=== PATIENT | female | born 1970 | race Caucasian/White ===

== ENCOUNTER 2017-03-25 13:15 | Inpatient (IN) | payer BC, SELFPAY ==
--- NOTE | 2017-03-25 14:38 | CT ---
CT OF THE BRAIN WITHOUT CONTRAST: COMPARISON: None. HISTORY: Altered mental status. The patient was wandering around work. High blood glucose. TECHNIQUE: Multiple contiguous axial images were obtained in a CT of the brain without contrast. FINDINGS: There are scattered hypodensities in the subcortical and periventricular white matter, likely seconda ry to small-vessel ischemic disease. No large confluent infarction is seen. There is no evidence of hydrocephalus, intracranial hemorrhage, or extraaxial fluid collection. The calvarium and overlying soft tissues are unremarkable. The visualized paranasal sinuses and mast oid air cells are well aerated. IMPRESSION: No evidence of acute intracranial abnormality. POS: [facility]
[2017-03-25 15:02] LABS: #Lymphocytes 1.2 thou/uL (1.20-3.40); #Monocytes 0.5 thou/uL (0.11-0.59); #Neutrophils 9.7 thou/uL (1.40-6.50); %Eosinophils 0.3 % (0.0-10.0); %Lymphocytes 10.2 % (21.0-51.0); %Monocytes 4.7 % (0.0-10.0); %Neutrophils 84.8 % (42.0-75.0); Hemoglobin 14.3 g/dL (12.0-16.0); Mean Corpuscular HGB CONC 32.7 g/dL (32.0-36.0); Mean Corpuscular Hemoglobin 26.4 pg (27.0-31.0); Mean Corpuscular Volume 80.8 fl (81.0-99.0); Mean Platelet Volume 8.5 fL (7.4-10.4); Platelet Count 219 thou/uL (130-400); RBC Distribution Width 12.1 % (11.5-14.5); White Blood Cell (WBC) Count 11.5 thou/uL (4.8-10.8)
--- NOTE | 2017-03-25 15:06 | RAD ---
TWO VIEWS OF THE CHEST: COMPARISON: None. HISTORY: Confusion, altered mental status, and tachycardia. FINDINGS: Two views of the chest show normal sized cardiomediastinal silhouette. There is no evidence of consol idation, mass, or pleural effusion. Mild degenerative changes are seen in the spine. IMPRESSION: No evidence of acute cardiopulmonary disease. POS: [facility]
[2017-03-25 15:22] LABS: Anion Gap 19 mmol/L (10-20); BUN (Urea Nitrogen) 15 mg/dL (7.0-18.7); Calc. Creatinine Clearance 0 mL/min (70-130); Calcium 9.9 mg/dL (7.8-10.44); Carbon Dioxide 21 mmol/L (22-29); Chloride 101 mmol/L (98-107); Estimated GFR-MDRD 51; Glucose 310 mg/dL (70-105); Potassium 3.7 mmol/L (3.5-5.1); Sodium 137 mmol/L (136-145)
[2017-03-25 15:28] LABS: CKMB 0.9 ng/mL (0-6.6); Troponin I 0.026 ng/mL (< 0.028)
[2017-03-25 16:20] LABS: Bilirubin Moderate (Negative); Blood, Urine Negative (Negative); Clarity CLOUDY (Clear); Glucose, Urine (Dipstick) >=1000 mg/dL (Negative); Leukocyte Trace (Negative); Nitrite Negative (Negative); Protein, Urine (Dipstick) 300 mg/dL (Neg-Trace); Specific Gravity, Urine 1.036 (1.002-1.036); Urobilinogen 0.2 mg/dL (0.2-1.0)
[2017-03-25 16:21] LABS: Bacteria/HPF 1+ HPF (None Seen); RBC/HPF 0-3 HPF (0-3)
[2017-03-25 16:22] LABS: Pathc Cast-AUWi Flag 3.92 (0-2.49)
[2017-03-25 16:29] LABS: Hyaline Casts/LPF 0-3 HYALINE CAST LPF (0-3 Hyaline); Manual Microscopic Reviewed? No Path Casts Seen
[2017-03-25 16:30] LABS: Amphetamine Not Detected (NotDetected); Barbiturates Screen Not Detected (NotDetected); Benzodiazepine Screen Detected (NotDetected); Cocaine Metabolite Screen Not Detected (NotDetected); Medtox Control Line Valid? VALID (VALID); Medtox Reader # READER 1; Methadone Not Detected (NotDetected); Methamphetamine Not Detected (NotDetected); Opiate Screen Not Detected (NotDetected); Oxycodone Screen Not Detected (NotDetected); Phencyclidine (PCP) Not Detected (NotDetected); THC/Cannabinoid Screen Not Detected (NotDetected); Tricyclic Screen Not Detected (NotDetected)
[2017-03-25] MEDS ORDERED: ISOVUE-370 76%-LOCM 1 ML ONE (16:52)
[2017-03-25 18:40] LABS: Troponin I 0.158 ng/mL (< 0.028)
[2017-03-25] MEDS ORDERED: Dextrose 5% in Water 1,000 ML IV PRN (21:03)
[2017-03-25] MEDS ORDERED: Dextrose 50% Abboject 50 ML SYRINGE SLOW IVP PRN (21:03)
[2017-03-25] MEDS ORDERED: hydrALAZINE 20 MG/ML VIAL SLOW IVP PRN (21:05)
[2017-03-25] MEDS ORDERED: Labetalol HCl 100 MG/20 ML VIAL SLOW IVP PRN (21:05)
[2017-03-25 21:17] LABS: Troponin I 0.432 ng/mL (< 0.028)
[2017-03-25 21:20] VITALS: BMI 30.9
[2017-03-25 21:28] LABS: Hemoglobin A1c 11.9 % (4.0-6.0)
[2017-03-25 21:31] LABS: ALT (SGPT) 15 U/L (8-55); AST (SGOT) 16 U/L (5-34); Albumin 4.1 g/dL (3.5-5.0); Alkaline Phosphatase 135 U/L (40-150); Bilirubin, Direct 0.2 mg/dL (0.1-0.3); Bilirubin, Total 0.6 mg/dL (0.2-1.2); Protein, Total 7.1 g/dL (6.0-8.3)
[2017-03-25] MEDS: Sodium Chloride 0.9% 1,000 ML IV SCH (21:44)
[2017-03-25] MEDS ORDERED: HumaLOG 300 UNITS/3 ML VIAL SC PRN (23:53)
[2017-03-25] MEDS ORDERED: Sodium Chloride 0.9% 1,000 ML IV SCH (23:59)
[2017-03-26] MEDS ORDERED: Acetaminophen 325 MG TAB PO PRN (00:04)
[2017-03-26 00:05] LABS: Troponin I 0.918 ng/mL (< 0.028)
[2017-03-26] MEDS: Enoxaparin Sodium 80 MG/0.8 ML SYRINGE SC SCH ×2 (01:22→01:24)
[2017-03-26] MEDS ORDERED: Aspirin 325 MG TAB PO SCH (04:00)
[2017-03-26] MEDS ORDERED: Heparin 25,000 units/D5W 500 ML IVPB SCH (04:00)
[2017-03-26] MEDS ORDERED: Heparin 10,000 UNITS/ 10 ML VIAL SLOW IVP SCH (04:00)
[2017-03-26 04:12] LABS: #Lymphocytes 2.1 thou/uL (1.20-3.40); #Monocytes 0.6 thou/uL (0.11-0.59); #Neutrophils 3.9 thou/uL (1.40-6.50); %Basophils 0.2 % (0.0-1.0); %Eosinophils 0.4 % (0.0-10.0); %Lymphocytes 30.9 % (21.0-51.0); %Neutrophils 59.5 % (42.0-75.0); Mean Corpuscular HGB CONC 32.3 g/dL (32.0-36.0); Mean Corpuscular Hemoglobin 26.1 pg (27.0-31.0); Mean Platelet Volume 8.1 fL (7.4-10.4); Platelet Count 196 thou/uL (130-400); RBC Distribution Width 12.3 % (11.5-14.5); Red Blood Cell (RBC) Count 4.58 mill/uL (4.20-5.40); White Blood Cell (WBC) Count 6.6 thou/uL (4.8-10.8)
--- NOTE | 2017-03-26 04:28 | HP-2 ---
DATE OF ADMISSION: 03/25/2017 CODE STATUS: FULL PRIMARY CARE PHYSICIAN: None. ATTENDING: Clint Zamora M.D. RESIDENT: Paulina Gutiérrez MD. CHIEF COMPLAINT: Confusion. HISTORY OF PRESENT ILLNESS: This is a 47-year-old female with past medical history of diabetes, hypertension, CVA in 2016, who presents to the ED via EMS due to an episode where she reports walking up and down in pack at work, where her coworkers found her, but she does not remember doing this after going to the bathroom about 30 minutes prior. She was very foggy during this time and has no recollection of what happened during that 30 minute period. She denies any weakness, but does report some tingling in her right hand. By the time she got to the ED about 45 minutes later, she felt okay with no residual symptoms. This all started around 12:30 p.m. This has never happened before. She denies any dizziness or lightheadedness or gait disturbance. Her blood sugar was high at the time. She does report that she has had a cough and has been taking DayQuil and NyQuil. PAST MEDICAL HISTORY: 1. Diabetes type 2. 2. Hypertension. 3. CVA in 2016. PAST SURGICAL HISTORY: 1. . 2. Hysterectomy. 3. Tonsillectomy. 4. Left leg and ankle repair. ALLERGIES: PENICILLIN. MEDICATIONS: 1. Lisinopril 10 mg. 2. Metformin 500 mg b.i.d. 3. Glimepiride 1 mg. 4. Hydralazine, unknown dose t.i.d. FAMILY HISTORY: Diabetes type 2. SOCIAL HISTORY: Denies tobacco or drug use. Drinks alcohol socially. REVIEW OF SYSTEMS: General: Denies fever, chills, or fatigue. Eyes: Denies vision changes or eye pain. ENT: Denies rhinorrhea or sore throat. Respiratory: Positive for cough. Negative for shortness of breath. Cardiovascular: Negative for chest pain or palpitations. GI: Negative for nausea, vomiting, abdominal pain. Genitourinary: Negative for dysuria, polyuria. Skin: Negative for rashes or lesions. Musculoskeletal: Negative for pain or tenderness. Neurologic: Negative for weakness. Positive for numbness. PHYSICAL EXAMINATION: VITAL SIGNS: Blood pressure 135/76, pulse 114, respiratory rate 16, temperature 99.1, pulse ox 98% on room air. Current weight 77 kilograms. GENERAL: Alert and oriented x3, no acute distress, obese, appropriately interactive. HEENT: PERRLA. Extraocular muscles intact. Conjunctivae within normal limits. ENT: Nasal mucosa and oropharynx within normal limits. NECK: Supple, no lymphadenopathy. CARDIAC: Regular rate and rhythm, no murmurs, 2+ radial and pedal pulses. LUNGS: Normal effort, no retractions, clear to auscultation bilaterally. SKIN: Warm, dry. No cyanosis or lesions. ABDOMEN: Soft, nontender to palpation, normoactive bowel sounds. No mass or distention. EXTREMITIES: No cyanosis or edema. MUSCULOSKELETAL: Structure and tone within normal; 5/5 muscle strength. Full range of motion. NEUROLOGICAL: No focal deficits. Sensation within normal limits. Cerebellum intact. Cranial nerves II through XII intact. GCS 15. PSYCHIATRIC: Appropriate. LABORATORY DATA: WBC 11.5, hemoglobin 14.3, hematocrit 43.7, MCV 80.8, neutrophils 84.8%, platelets 218. Sodium 137, potassium 3.7, chloride 101, CO2 21, BUN 15, creatinine 1.14, GFR 51, glucose 310, calcium 9.9, AST 16, ALT 15, alkaline phosphatase 135, total bilirubin 0.6, ammonia 15, D-dimer 0.69, CK-MB 0.9, troponin 0.02, 0.158, 0.432. Urinalysis showed 300 protein, trace leukocyte esterase, trace ketones, greater than 1000 glucose, 4-6 white blood cells, 1+ bacteria. UDS showed positive for benzodiazepines. EKG showed sinus tachycardia. Chest x-ray showed no acute process. CT brain showed no acute process. ASSESSMENT AND PLAN: This is a 47-year-old female, who presents with: 1. Encephalopathy; could be secondary to transient ischemic attack versus benzodiazepine abuse. The patient denied using benzos and was not given any in the ED. We will observe on stroke code. We will do q.4 neuro checks. Check an MRI, echo, carotid Dopplers with aspirin; check fasting lipid panel and TSH. 2. NSTEMI. The patient is having no chest pain, but has elevated troponins that are trending up. We will trend troponins. Start on therapeutic Lovenox and consult cardiology in the AM. Repeat EKG for any new chest pain. Give aspirin daily, nitro prn chest pain. O2 prn. 3. Elevated D-dimer. The patient's Wells score is 1.5, tachycardic, no lower extremity swelling or signs of deep venous thrombosis. We will get a CTA of the chest to rule out PE. 4. Sinus tachycardia; could be secondary to infection versus [id number] myocardial infarction versus pulmonary embolism versus thyroid abnormality. We will check a TSH. Rest of the workup as above. Normal saline bolus followed by NS 125 and monitor on tele. 5. Leukocytosis, mild. The patient has no signs or symptoms of infection. We will give fluids and monitor. 6. Asymptomatic bacteriuria. We will give fluids and monitor. 7. Diabetes type 2. We will restart home medication. Check A1c, Accu-Cheks on sliding scale insulin. 8. Hypertension. Continue home medications. 9. Venous thromboembolism prophylaxis. Therapeutic Lovenox. DISPOSITION: Observation on stroke. Symptomatic medications will be provided. History and physical exam as well as management discussed with Dr. Zamora. KUN
[2017-03-26 04:36] LABS: Anion Gap 12 mmol/L (10-20); BUN (Urea Nitrogen) 15 mg/dL (7.0-18.7); Calc. Creatinine Clearance 80 mL/min (70-130); Calcium 8.8 mg/dL (7.8-10.44); Carbon Dioxide 24 mmol/L (22-29); Cardiac Risk 6.3 (Less than 4.5); Chloride 104 mmol/L (98-107); Cholesterol 226 mg/dl (< 200 Desired); Estimated GFR-MDRD 61; Glucose 273 mg/dL (70-105); HDL Cholesterol 36 mg/dL (>60 Neg Risk); LDL Cholesterol, Calculated 167 mg/dL; Sodium 137 mmol/L (136-145); Triglycerides 114 mg/dL (Less than 150)
[2017-03-26 04:38] LABS: Potassium 2.8 mmol/L (3.5-5.1)
[2017-03-26 04:41] LABS: CKMB 4.2 ng/mL (0-6.6)
--- NOTE | 2017-03-26 04:56 | PDOC.EVN ---
Event Note - Event Note Event Note: Was called by nurse that patient refused lovenox treatment. Went to speak with patient and she stated that she would "rather " than get the lovenox shots. Explained the importance of the therapy, but the patient still adamantly refused treatment. Switched the therapy to heparin, which the patient agreed to.
[2017-03-26] MEDS ORDERED: Potassium Chloride 40 MEQ in Sodium Chloride 0.9% 500 ML IVPB SCH (05:15)
--- NOTE | 2017-03-26 05:33 | PDOC.FM ---
- Subjective Subjective: Troponin uptrended overnight. Patient refused therapeutic lovenox. Started on heparin drip. Denies chest pain, shortness of breath or chest pain. Patient states she is doing well this AM. Patient refusing MRI. States she had one done recently and does not want to get another one done. - Objective Vital Signs & Weight: Vital Signs (12 hours) Temp Pulse Resp BP Pulse Ox 03/26/17 03:34 98.6 F 102 H 16 128/60 96 03/25/17 23:34 100.1 F H 110 H 16 125/60 92 L 03/25/17 20:00 98.5 F 121 H 16 98 03/25/17 19:37 98.5 F 121 H 16 157/71 H 94 L Weight Weight 71.894 kg Result Diagrams: 03/26/17 04:06 03/26/17 04:06 Phys Exam - Physical Examination Constitutional: NAD HEENT: moist MMs Neck: supple Respiratory: no wheezing, no rales, no rhonchi, clear to auscultation bilateral Cardiovascular: RRR Gastrointestinal: soft, positive bowel sounds Musculoskeletal: pulses present Neurological: non-focal, moves all 4 limbs Psychiatric: normal affect, A&O x 3 Skin: cap refill <2 seconds Dx/Plan (1) Encephalopathy acute Code(s): G93.40 - ENCEPHALOPATHY, UNSPECIFIED Status: Acute (2) NSTEMI (non-ST elevated myocardial infarction) Code(s): I21.4 - NON-ST ELEVATION (NSTEMI) MYOCARDIAL INFARCTION Status: Acute (3) Sinus tachycardia Code(s): R00.0 - TACHYCARDIA, UNSPECIFIED Status: Acute (4) Elevated d-dimer Code(s): R79.89 - OTHER SPECIFIED ABNORMAL FINDINGS OF BLOOD CHEMISTRY Status : Acute (5) Leukocytosis Code(s): D72.829 - ELEVATED WHITE BLOOD CELL COUNT, UNSPECIFIED Status: Resolved (6) Asymptomatic bacteriuria Code(s): R82.71 - BACTERIURIA Status: Acute - Plan Plan: 1. Encephalopathy - Presented with AMS which has since resolved - Concern for TIA vs. CVA - Risk factors include uncontrolled DM, HTN, and hx of CVA in 2016 - CT Brain negative - Carotid dopplers pending - MRI brain pending; patient refusing imaging - ECHO pending - Q4H neuro checks - Uncertain whether encephalopathy 2/2 benzo use; patient denies, however positive UDS 2. NSTEMI - Troponin initially negative, but has since uptrended to 1.470 - Patient asymptomatic - EKG showed some t wave inversions in inferior leads - Patient refused lovenox, started on heparin drip - Consult cardiology today 3. Sinus Tachycardia - Unexplained - CTA chest pending 4. Elevated D-dimer - In presence of tachycardia; CTA chest pending - Patient on heparin drip due to NSTEMI 5. Leukocytosis - Resolved - Likely stress reaction 6. Asymptomatic bacteruria - No treatment at this time 7. DM2 - Uncontrolled - HgA1c 11.9 - On metformin and another oral agent - Started on insulin; titrate regimen - ASA, GERA-I, Lipid lowering agent 8. HTN - Continue home medications 9. History of CVA in 2016 - No residual effects from CVA in 2016 10. Hypokalemia - Replace electrolytes - Mg level pending
--- NOTE | 2017-03-26 08:41 | ULT ---
CAROTID ULTRASOUND: COMPARISON: None. HISTORY: TIA. TECHNIQUE: Multiplanar, cotto scale, and color Doppler images were obtained in a carotid ultrasound. Spectral an alysis of the Doppler waveforms were performed. FINDINGS: There is no significant plaque in either internal or common carotid artery. The Doppler waveforms ar e normal bilaterally. Peak systolic velocity in the right ICA is 52 cm/s The peak systolic velocity in the right CCA is 11 3 cm/s. The right ICA/CC ratio is 0.5. Peak systolic velocity in the left ICA is 52 cm/s. Peak systolic velocity in the left CCA is 96 cm/s . The left ICA/CCA ratio is 0.5. Both vertebral arteries demonstrate antegrade flow without focal stenosis. IMPRESSION: No evidence of hemodynamically significant stenosis. POS: [facility]
--- NOTE | 2017-03-26 08:49 | CT ---
PRELIMINARY REPORT/[facility]/EMERGENCY AFTER HOURS PROCEDURE: EXAM: CT Angiography Chest With Intravenous Contrast CLINICAL HISTORY: 47 years old, female; Pain; Chest pain; Type not specified; Patient HX: R/O pe TECHNIQUE: Axial computed tomographic angiography images of the chest with intravenous contrast using pulmonary embolism protocol. CONTRAST: 70 mL of ISOVUE administered intravenously. COMPARISON: No relevant prior studies available. FINDINGS: Pulmonary arteries: No acute findings. No pulmonary embolism. Aorta: No acute findings. No thoracic aortic aneurysm. Lungs: No acute findings. No mass. No consolidation. Pleural space: No acute findings. No significant effusion. No pneumothorax. Heart: No acute findings. No cardiomegaly. No significant pericardial effusion. No evidence of RV dys function. Bones/joints: Chronic degenerative spinal changes without acute fracture or dislocation. Soft tissues: No acute findings. Lymph nodes: No acute findings. No enlarged lymph nodes. Upper abdomen: Gallbladder distended with either extensive sludge vs vicariously excreted contrast. IMPRESSION: No pulmonary embolism. No pneumonia, lung mass, or edema. Gallbladder distended with either extensive sludge vs vicariously excreted contrast. Thank you for allowing us to participate in the care of your patient. Dictated and Authenticated by: Zain Jain MD 03/26/2017 1:13 AM Central Time ([place] & [place]) FINAL REPORT EMERGENT AFTER HOURS CTA OF THE CHEST WITH CONTRAST: TECHNIQUE: Multiple contiguous axial images were obtained in a CTA of the chest with contrast per pulmonary embo lism protocol. Three-D oblique MIP reformats and direct coronal reformats were performed. FINDINGS/IMPRESSION: I agree with the findings and impression given in the preliminary report per [facility] physician. 1. No evidence of pulmonary thromboembolism. 2. Distended gallbladder with sludge and stones. POS: [facility]
[2017-03-26] MEDS ORDERED: Enoxaparin Sodium 80 MG/0.8 ML SYRINGE SC SCH (09:00)
[2017-03-26] MEDS ORDERED: Potassium Chloride 20 MEQ TAB PO SCH (09:00)
[2017-03-26] MEDS ORDERED: Aspirin 81 mg Enteric Coated Tablet PO SCH (09:00)
[2017-03-26] MEDS: hydrALAZINE 25 MG TAB PO SCH ×3 (09:11→20:49)
[2017-03-26 10:11] LABS: Critical Call Chem Troponin I RESULT DECREASING; Troponin I 1.391 ng/mL (< 0.028)
[2017-03-26] MEDS: Sodium Chloride 0.9% 1,000 ML IV SCH ×2 (15:18→20:55)
[2017-03-26 16:42] LABS: Potassium 3.9 mmol/L (3.5-5.1)
[2017-03-26 16:48] LABS: Anion Gap 14 mmol/L (10-20); BUN (Urea Nitrogen) 14 mg/dL (7.0-18.7); Calc. Creatinine Clearance 91 mL/min (70-130); Calcium 9.4 mg/dL (7.8-10.44); Carbon Dioxide 23 mmol/L (22-29); Chloride 105 mmol/L (98-107); Estimated GFR-MDRD 70; Glucose 232 mg/dL (70-105); Potassium 3.9 mmol/L (3.5-5.1); Sodium 138 mmol/L (136-145)
--- NOTE | 2017-03-26 19:53 | HP ---
ADDENDUM Please see the history and physical from Dr. Gutiérrez for which I concur. I also agree with progress no te today from Dr. Goodman. This patient was seen, evaluated, examined, discussed with the resident by bedside. HISTORY OF PRESENT ILLNESS: This is a 47-year-old female who presented with altered mental status in the middle of the day at work of undetermined etiology as she related not much other symptoms before or afterwards and had history of stroke a couple of years ago, diabetes, hypertension, no reason to think that is hypoglycemia as her sugars are actually been high ever since. Did have urine drug scre en that was positive for benzodiazepines which the patient denies since it is unclear what the etiolo gy or importance of that is. But she comes in basically being worked up for the possibility of a str radha and her troponins trended upward to the point of non-ST PR range although EKG has looked normal. She describes no chest pain, no shortness of breath, no palpitations, etc. Refuses Lovenox because she did not want the shots and I ended up putting her on IV heparin. PAST MEDICAL HISTORY: All per the resident history and physical for which I concur. PAST SURGICAL HISTORY: All per the resident history and physical for which I concur. ALLERGIES: All per the resident history and physical for which I concur. MEDICATIONS: All per the resident history and physical for which I concur. FAMILY HISTORY: All per the resident history and physical for which I concur. SOCIAL HISTORY: All per the resident history and physical for which I concur. REVIEW OF SYSTEMS: All per the resident history and physical for which I concur. PHYSICAL EXAMINATION: VITAL SIGNS: Afebrile, vital signs are stable. Pulse rate is 97 little bit fast between 100 and 110 in the room, but no apparent distress. Pleasant affect. HEENT: Normal. NECK: No bruits, JVD. CHEST: Clear. CARDIOVASCULAR: Regular rate and rhythm without any ectopy. ABDOMEN: Benign. NEUROLOGIC: Completely normal. LABORATORY FINDINGS: Blood workup is significant for hypokalemia and also the elevated troponins jer nding upward. IMAGING: CTA of the chest that was normal. Drug screen was positive for benzos. ASSESSMENT AND PLAN: 1. Altered mental status, acute and resolved, makes me wonder if she maybe had some kind of arrhythm ia from the cardiac issue. They caused hypotension, hypoperfusion of the brain and some altered ment al status. Hypoglycemia that was just undiagnosed and uncaught is a possibility as well. 2. Non-ST myocardial infarction based on troponin. We will get Cardiology involved. 3. Diabetes. We will continue home medicines. 4. The patient refuses MRI of the brain, but at this point in time, I do not think it is going to be adding much to it anyway.
[2017-03-26] MEDS ORDERED: Atorvastatin Calcium 40 MG TAB PO SCH (21:00)
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
[2017-03-27] MEDS ORDERED: Levothyroxine Sodium 100 MCG TAB PO SCH (06:00)
[2017-03-27] MEDS ORDERED: Magnesium Oxide 400 MG TAB PO SCH (06:27)
--- NOTE | 2017-03-27 06:31 | PDOC.FM ---
- Objective Vital Signs & Weight: Vital Signs (12 hours) Temp Pulse Resp BP BP Pulse Ox 03/27/17 04:52 98.2 F 86 16 194/96 H 98 03/27/17 04:45 84 194/93 H 03/26/17 23:39 98.0 F 76 18 201/93 H 95 03/26/17 20:49 82 192/91 H 03/26/17 20:45 98.0 F 76 18 98 03/26/17 20:43 98.4 F 82 16 192/91 H 98 Weight Weight 71.894 kg I&O: 03/25/17 03/26/17 03/27/17 06:59 06:59 06:59 Intake Total 2160 1440 Balance 2160 1440 Result Diagrams: 03/26/17 04:06 03/26/17 16:17 Dx/Plan (1) Encephalopathy acute Code(s): G93.40 - ENCEPHALOPATHY, UNSPECIFIED Status: Acute (2) NSTEMI (non-ST elevated myocardial infarction) Code(s): I21.4 - NON-ST ELEVATION (NSTEMI) MYOCARDIAL INFARCTION Status: Acute (3) Sinus tachycardia Code(s): R00.0 - TACHYCARDIA, UNSPECIFIED Status: Acute (4) Elevated d-dimer Code(s): R79.89 - OTHER SPECIFIED ABNORMAL FINDINGS OF BLOOD CHEMISTRY Status : Acute (5) Leukocytosis Code(s): D72.829 - ELEVATED WHITE BLOOD CELL COUNT, UNSPECIFIED Status: Resolved (6) Asymptomatic bacteriuria Code(s): R82.71 - BACTERIURIA Status: Acute - Plan Plan: 1. Encephalopathy - Presented with AMS which has since resolved - Concern for TIA vs. CVA - Risk factors include uncontrolled DM, HTN, and hx of CVA in 2016 - CT Brain negative - Carotid dopplers negative - Patient refused MRI of brain - ECHO showed EF 65-70% with grade 1/3 diastolic dysfunction - Q4H neuro checks - Uncertain whether encephalopathy 2/2 benzo use; patient denies, however positive UDS 2. NSTEMI - Troponin initially negative, but uptrended to 1.470 - Patient asymptomatic - EKG showed some t wave inversions in inferior leads - Patient refused lovenox, started on heparin drip - Appreciate cards recs; considering link recorder vs. cath - possibility of arrhythmia causing episodes - Recommend neurology consult for possible seizures 3. Sinus Tachycardia - Unexplained - CTA chest negative 4. Elevated D-dimer - In presence of tachycardia; CTA chest negative - Patient on heparin drip due to elevated troponins 5. Leukocytosis - Resolved - Likely stress reaction 6. Asymptomatic bacteruria - No treatment at this time 7. DM2 - Uncontrolled - HgA1c 11.9 - On metformin and another oral agent - Started on insulin; titrate regimen - ASA, GERA-I, Lipid lowering agent 8. HTN - Continue home medications 9. History of CVA in 2016 - No residual effects from CVA in 2016 10. Hypokalemia, resolved - Replace electrolytes - Mg level low; replaced Mg
[2017-03-27] MEDS ORDERED: glipiZIDE 10 MG TAB PO SCH (07:30)
[2017-03-27] MEDS ORDERED: Aspirin 325 MG TAB PO SCH (08:00)
[2017-03-27] MEDS: hydrALAZINE 25 MG TAB PO SCH (08:55)
[2017-03-27] MEDS: Sodium Chloride 0.9% 1,000 ML IV SCH (08:56)
[2017-03-27 12:02] VITALS: TEMP 98.7
[2017-03-27 12:15] VITALS: BP 193/82
--- NOTE | 2017-03-27 16:09 | ADD-PRG ---
ADDENDUM: 03/27/2017 Please see the note from Dr. Marie Goodman for which I concur. The patient was seen and evaluate d, examined and discussed with the residents by bedside. The patient has been stable and has had no other neurologic events or any kind altered mental status that she has been in the hospital, but is b eing worked up by Cardiology and at this point in time, it really showed up on her thorough stroke an d cardiac evaluation has been the troponin. Still waiting to see cardiology's final decision as far as to proceed with outpatient rhythm monitoring or possibly even do a stress test or heart catheteriz ation or something like that on her. There is some question of maybe she has had a few of these spel ls at other times and may need considering outpatient Neurology evaluation to make sure she is not po tentially having some type of seizure or partial seizures as well, otherwise exam is completely megan l today. Patient keeps threatening to leave against medical advice, but understands the reason why s he is still here and will stay, waiting for Cardiology evaluation.
[2017-03-27] MEDS ORDERED: Lisinopril 10 MG TAB PO SCH (21:00)
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
--- NOTE | 2017-03-28 20:20 | EKG ---
Test Reason : Blood Pressure : / mmHG Vent. Rate : 108 BPM Atrial Rate : 108 BPM P-R Int : 174 ms QRS Dur : 078 ms QT Int : 346 ms P-R-T Axes : 046 030 140 degrees QTc Int : 463 ms Sinus tachycardia Anteroseptal infarct , age undetermined T wave abnormality, consider inferior ischemia Abnormal ECG Confirmed by NICK BARBOSA, DR. Hong ([id number]) on 03/28/2017 8:20:06 PM Referred By: Confirmed By:DR. Hal ROMERO MD
--- NOTE | 2017-03-31 10:27 | PQF ---
EMMETT BARRETT RUSSEL B MD [id number] [address] [place] [address] [id number] CLINICAL DOCUMENTATION CLARIFICATION FORM: POST DISCHARGE Addendum to original discharge summary date: ____ Late entry note date: __ DATE: 03/31/2017 ATTN: DR. MARROQUIN Please exercise your independent, professional judgment in responding to the clarification form. Clinical indicators are provided on the bottom of this form for your review Please check appropriate box(s): [ ] Encephalopathy: Type: [ ] Acute [ ] Subacute [ ] Chronic Etiology: [ ] Hypertensive [ ] Metabolic [ ] Toxic [ ] Hepatic with Coma [ ] Hepatic w/o Coma [ ] Hypoxic [ ] Septic [ ] Drug induced: [ ] Unspecified [ ] in the setting of underlying dementia [ ] Other (please specify) [ ] Transient Alteration of Awareness [ ] Other diagnosis [ ] Unable to determine In addition, please specify: Present on Admission (POA): [ ] Yes [ ] No [ ] Unable to determine For continuity of documentation, please document condition throughout progress notes and discharge summary. Thank You. CLINICAL INDICATORS - SIGNS / SYMPTOMS / LABS: UDS - POSITIVE BENZO H&P: Altered mental status / confusion ENCEPHALOPATHY - "COULD BE SECONDARY TO TIA VERSUS BENZODIAZEPINE ABUSE " 03/26 CARDIO CONSULT - ALTERED MENTATION 03/25 PN - ENCEPHALOPATHY - LIKELY TOXIC VS 2/2 NEUROLOGICAL EVENT VS SYNCOPE - UDS POSITIVE FOR BENZO 03/26 PN - ENCEPHALOPATHY - UNCERTAIN WHETHER ENCEPHALOPATHY 2/2 BENZO USE - POSITIVE UDS RISK FACTORS: DM - UNCONTROLLED HYPOTENSION AMS HTN HX - CVA TREATMENTS: Cause is corrected encephalopathy resolves CARDIO CONSULT MRI BRAIN NEURO CHECKS (This form is maintained as a part of the permanent medical record) 2014 [employer]. All Rights Reserved Iveth Guajardo, CCS, CERTIFIED NURSES' AIDE-H [email or web address] [phone] KUN
== END 2017-03-27 12:16 | disposition left against medical advice (07) | DRG 947 ==
LOC: ERS 13:15 → 2SE 17:16
PROVIDERS: ADMIT Internal Medicine Infectious Disease; ATTEND Internal Medicine Infectious Disease
DX: R41.82 Altered mental status, unspecified (principal); G93.40 Encephalopathy, unspecified; E11.65 Type 2 diabetes mellitus with hyperglycemia; I10 Essential (primary) hypertension; Z86.73 Personal history of transient ischemic attack (TIA), and cerebral infarction without residual deficits; Z79.84 Long term (current) use of oral hypoglycemic drugs; R82.71 Bacteriuria; Z87.820 Personal history of traumatic brain injury; R00.0 Tachycardia, unspecified; E87.6 Hypokalemia; R79.89 Other specified abnormal findings of blood chemistry; D72.829 Elevated white blood cell count, unspecified
CPT/HCPCS: 36415; 36416; 70450; 71046; 71275; 80048; 80061; 80076; 80306; 81003; 81015; 82140; 82553; 83036; 83735; 84443; 84484; 85025; 85379; 85730; 93005; 93010; 93306; 93880; J0360; J1644; J1650; J3480; J7050

== ENCOUNTER 2020-02-17 18:03 | Inpatient (IN) | payer BC, SELFPAY ==
[2020-02-17 18:36] LABS: #Basophils 0.1 thou/uL (0.0-0.2); #Lymphocytes 2.2 thou/uL (1.20-3.40); #Monocytes 0.7 thou/uL (0.11-0.59); %Basophils 0.5 % (0.0-1.0); %Eosinophils 0.1 % (0.0-10.0); %Monocytes 5.2 % (0.0-10.0); %Neutrophils 77.2 % (42.0-75.0); Hemoglobin 15.3 g/dL (12.0-16.0); Mean Corpuscular HGB CONC 34.2 g/dL (32.0-36.0); Mean Corpuscular Hemoglobin 27.2 pg (27.0-31.0); Mean Corpuscular Volume 79.5 fL (78.0-98.0); Mean Platelet Volume 9.2 fL (7.4-10.4); Platelet Count 276 thou/uL (130-400); RBC Distribution Width 12.5 % (11.5-14.5); Red Blood Cell (RBC) Count 5.63 mill/uL (4.20-5.40)
--- NOTE | 2020-02-17 18:43 | CT ---
CT head noncontrast HISTORY: Altered mental status. FINDINGS: There is no evidence of acute intracranial hemorrhage or infarct. Ventricles appear normal in size, shape and position. Old areas of encephalomalacia from prior ischemic insult involve each basal ganglia, the right fronta l lobe, in the left cerebellar hemisphere. There is no mass effect or shift of midline structures. Visualized paranasal sinuses remain well aerated. IMPRESSION : Chronic-type findings are stable. No acute intracranial abnormalities are demonstrated. Findings were called to [facility] in the emergency department at 1837 hours. Code CR.
--- NOTE | 2020-02-17 19:02 | RAD ---
Chest one view HISTORY: Altered mental status. COMPARISON: 03/25/2017. FINDINGS: Cardiac silhouette is magnified by projection. Pulmonary vasculature are unremarkable. Mediastinum is midline with aortic calcification. No lobar consolidation or evidence of pneumothorax. Osseous deformities of the anterior aspect of the right first/second ribs and the superior margin of the left scapula are unchanged and may be related to prior trauma or a congenital anomaly. IMPRESSION : Chronic-type findings are stable. No acute abnormalities are demonstrated.
[2020-02-17] MEDS ORDERED: Ondansetron PF 4 MG/2 ML Vial ONE (19:19)
[2020-02-17] MEDS ORDERED: Cefepime 2 GM VIAL ONE (19:19)
[2020-02-17] MEDS ORDERED: Vancomycin 1 GM/200 ML BAG ONE (19:19)
[2020-02-17 19:21] LABS: CKMB 0.8 ng/mL (0-6.6)
[2020-02-17 19:34] LABS: Prothrombin Time 13.5 sec (12.0-14.7)
[2020-02-17 19:48] LABS: PTT 24.7 sec (22.9-36.1)
[2020-02-17 19:54] LABS: ALT (SGPT) 22 U/L (8-55); AST (SGOT) 24 U/L (5-34); Albumin 4.2 g/dL (3.5-5.0); Alkaline Phosphatase 133 U/L (40-110); Anion Gap 26 mmol/L (10-20); BUN (Urea Nitrogen) 26 mg/dL (7.0-18.7); Bilirubin, Total 0.5 mg/dL (0.2-1.2); CK (CPK) 128 U/L (29-168); Calc. Creatinine Clearance 0 mL/min (70-130); Calcium 9.8 mg/dL (7.8-10.44); Carbon Dioxide 22 mmol/L (22-29); Chloride 101 mmol/L (98-107); Globulin 3.9 g/dL (2.4-3.5); Glucose 338 mg/dL (70-105); Lipase 46 U/L (8-78); Potassium 3.2 mmol/L (3.5-5.1); Protein, Total 8.1 g/dL (6.0-8.3); Sodium 146 mmol/L (136-145)
[2020-02-17 20:31] LABS: Bilirubin 1+ (Negative); Blood, Urine 2+ (Negative); Clarity Turbid (Clear); Glucose, Urine (Dipstick) Greater than 1000 mg/dL (Negative); Ketone, Urine 80 mg/dL (Negative); Leukocyte Negative Leu/uL (Negative); Nitrite Negative (Negative); Protein, Urine (Dipstick) 300 mg/dL (Neg-Trace); RBC/HPF 0-3 HPF (0-3); Specific Gravity, Urine 1.034 (1.002-1.036); Squamous Epithelial None Seen HPF (0-3); Urobilinogen Normal mg/dL (Less than 2); pH, Urine 5.5 (5.0-9.0)
[2020-02-17 20:32] LABS: Base Excess-Venous 1.7 mmol/L (-2.0 to 3.0); CO2 Tension (PvCO2) 34.7 mmHg (40.0-50.0); Calcium, Ionized 1.04 mmol/L (1.15-1.33); Chloride 106 mmol/L (98-107); Hemoglobin - Calc 16.4 g/dL (12.0-16.0); Potassium 3.4 mmol/L (3.5-5.1); Sodium 145 mmol/L (138-145); T. Carbon Dioxide 26.1 mmol/L (22.0-28.0); vO2 Saturation-calc 99.6 % (60.0-85.0)
[2020-02-17 20:44] LABS: Bacteria/HPF Rare-Few HPF (None Seen)
[2020-02-17] MEDS ORDERED: hydrALAZINE 20 MG/ML VIAL ONE (20:54)
[2020-02-17] MEDS ORDERED: Acetaminophen 325 MG/10.15 ML UDCUP ONE ×2 (21:57→22:01)
[2020-02-17 22:18] LABS: Lactic Acid 2.9 mmol/L (0.5-2.2)
[2020-02-17] MEDS ORDERED: Communication Order-Pharmacy FS PRN (22:29)
[2020-02-17] MEDS ORDERED: Dextrose 50% Abboject 50 ML SYRINGE SLOW IVP PRN (22:33)
[2020-02-17] MEDS ORDERED: Dextrose 5% in Water 1,000 ML IV PRN (22:33)
[2020-02-18] MEDS ORDERED: Aspirin Chewable 81 MG TAB ONE (00:07)
[2020-02-18] MEDS: Sodium Chloride 0.9% 1,000 ML IV SCH ×3 (00:29→18:29)
--- NOTE | 2020-02-18 01:04 | PDOC.BPN ---
- Brief Progress Note [id number] HP dictated
--- NOTE | 2020-02-18 01:58 | HP ---
CHIEF COMPLAINT: Altered mental status. HISTORY OF PRESENT ILLNESS: Ms. Vizcaino is a 49-year-old female with past medical history of diabetes mellitus type 2, hypertension, CVA, noncompliance, was brought to the emergency room with altered mental status. As per records, the patient had slurred speech, confusion, hyperglycemia that began around 3 p.m. per mother. The patient's mother reports that she has not been feeling well over the last week. However, the slurring of speech started around 3 p.m. She is not taking her insulin and she is diabetic. The patient has been having nausea, vomiting, generalized weakness, and fatigue. No chest pain. No shortness of breath or other symptoms reported. Workup in the emergency room including CT of the brain, no acute findings. Chest x-ray, no acute finding. EKG shows sinus tachycardia with T-wave inversion in V5 and V6. The patient also was found to be febrile with a temperature of 100.2. Lab work, the patient had elevated glucose with a blood glucose of 338. Her anion gap was 26, but the patient also was found to be in acute renal failure with a creatinine of 1.63. Venous blood gas showed a pH of 7.46. In the emergency room, the patient was hydrated with IV fluids. Her blood sugar went down to the 200s. The patient became more alert, awake, able to answer questions. Septic workup done in the ED. Started on IV antibiotics. Her initial troponin was 3.8, repeat is 2.9. The patient is being admitted to hospital for further management. PAST MEDICAL HISTORY: As mentioned above in the history of present illness. PAST SURGICAL HISTORY: 1. . 2. Hysterectomy. 3. Tonsillectomy. 4. Leg and ankle repair. SOCIAL HISTORY: The patient drinks socially. Denies drug use. No smoking history. FAMILY HISTORY: Reviewed and noncontributory. ALLERGIES: PENICILLINS. HOME MEDICATIONS: See home medication reconciliation form for updated medications. REVIEW OF SYSTEMS: The patient is a very poor historian, but review of 14 systems is negative except what is mentioned in history of present illness. PHYSICAL EXAMINATION: GENERAL: The patient is awake, alert, does not appear to be in acute distress. VITAL SIGNS: Blood pressure is 128/94, heart rate is 110, respiratory rate is 20, and temperature 100.2 and now it is 99.5. HEAD AND NECK: Normocephalic. Neck is supple. Mucous membranes dry. HEART: S1, S2. Regular, tachycardic. ABDOMEN: Soft, nontender. Bowel sounds present. NEUROLOGIC: Awake, alert, moving extremities. PSYCH: Unable to assess. EXTREMITIES: No clubbing. No cyanosis. GENITOURINARY: No suprapubic tenderness. No flank tenderness. LABORATORY DATA: As mentioned above in history of present illness. IMAGING STUDIES: As mentioned above in history of present illness. ASSESSMENT: 1. Acute encephalopathy, metabolic. 2. Diabetes mellitus with hyperglycemia. 3. Acute kidney injury/acute renal failure. 4. Noncompliance. 5. History of cerebrovascular accident. 6. Suspected sepsis?? PLAN: 1. Admit. 2. Septic workup done in the ED. 3. IV antibiotics. 4. Continue with IV fluids. 5. Monitor and control blood glucose, place the patient on sliding scale with insulin coverage. 6. Reconcile home medications. 7. DVT prophylaxis as appropriate. 8. The patient to be reassessed in a.m. after IV fluid hydration. If the patient is still having altered mental status or worsening, may need further neurological workup. 9. Expected length of stay, 2 midnights or more. Job ID: [id number]
[2020-02-18 04:35] VITALS: BMI 29.7
[2020-02-18 05:21] LABS: Cardiac Risk 5.9 (Less than 4.5)
--- NOTE | 2020-02-18 07:41 | RAD ---
XR Chest 1 View History: Code Comparison: Radiograph prior day Findings: Left lower lobe atelectasis. No pneumothorax. Heart size is normal. No acute osseous abnorm ality. Osseous fusion right anterior first and second ribs. Impression: Left basilar atelectasis otherwise no significant change.
[2020-02-18] MEDS ORDERED: Cefepime 2 GM in Sodium Chloride 0.9% 100 ML IVPB SCH (08:00)
[2020-02-18 08:06] LABS: #Lymphocytes 1.2 thou/uL (1.20-3.40); #Monocytes 0.2 thou/uL (0.11-0.59); #Neutrophils 2.7 thou/uL (1.40-6.50); %Basophils 0.6 % (0.0-1.0); %Lymphocytes 28.5 % (21.0-51.0); %Monocytes 5.4 % (0.0-10.0); %Neutrophils 65.5 % (42.0-75.0); Hemoglobin 14.5 g/dL (12.0-16.0); Mean Corpuscular HGB CONC 33.2 g/dL (32.0-36.0); Mean Corpuscular Hemoglobin 26.8 pg (27.0-31.0); Mean Corpuscular Volume 80.7 fL (78.0-98.0); Mean Platelet Volume 8.7 fL (7.4-10.4); Platelet Count 212 thou/uL (130-400); RBC Distribution Width 12.4 % (11.5-14.5); White Blood Cell (WBC) Count 4.2 thou/uL (4.8-10.8)
[2020-02-18] MEDS: Enoxaparin Sodium 40 MG/0.4 ML SYRINGE SC SCH (08:09)
[2020-02-18 08:23] LABS: Lactic Acid 2.2 mmol/L (0.5-2.2)
[2020-02-18 08:29] LABS: Acetaminophen Less than 6.0 mcg/mL (10.0-30.0); Alcohol Less than 10 mg/dL (Less than 10); Salicylate Less than 8.0 mg/dL (15.0-30.0)
[2020-02-18 08:30] LABS: ALT (SGPT) 18 U/L (8-55); AST (SGOT) 30 U/L (5-34); Albumin 3.4 g/dL (3.5-5.0); Alkaline Phosphatase 105 U/L (40-110); Anion Gap 19 mmol/L (10-20); BUN (Urea Nitrogen) 26 mg/dL (7.0-18.7); Bilirubin, Total 0.7 mg/dL (0.2-1.2); Calc. Creatinine Clearance 62 mL/min (70-130); Calcium 8.4 mg/dL (7.8-10.44); Carbon Dioxide 19 mmol/L (22-29); Chloride 106 mmol/L (98-107); Globulin 3.5 g/dL (2.4-3.5); Glucose 223 mg/dL (70-105); Protein, Total 6.9 g/dL (6.0-8.3); Sodium 141 mmol/L (136-145)
[2020-02-18 08:43] LABS: Amphetamine Not Detected (NotDetected); Barbiturates Screen Not Detected (NotDetected); Benzodiazepine Screen Not Detected (NotDetected); Cocaine Metabolite Screen Not Detected (NotDetected); Medtox Reader # READER 1; Methadone Not Detected (NotDetected); Methamphetamine Not Detected (NotDetected); Opiate Screen Not Detected (NotDetected); Oxycodone Screen Not Detected (NotDetected); Phencyclidine (PCP) Not Detected (NotDetected); THC/Cannabinoid Screen Not Detected (NotDetected); Tricyclic Screen Not Detected (NotDetected)
[2020-02-18 08:44] LABS: Medtox Control Line Valid? VALID (VALID)
[2020-02-18 08:44] LABS: Potassium 2.7 mmol/L (3.5-5.1)
[2020-02-18] MEDS ORDERED: Vancomycin HCl 1 GM in Sodium Chloride 0.9% 250 ML 300 ML IVPB SCH (09:00)
[2020-02-18 09:24] LABS: SARS-CoV-2 MS2 Positive; SARS-CoV-2 N Gene Negative; SARS-CoV-2 S Gene Negative; SARS-CoV-2 by NAA Not Detected (NotDetected); SARS-CoV-2 orf1ab Negative
[2020-02-18] MEDS: Potassium Chloride 20 MEQ in Premix Bag 1 BAG IVPB SCH ×2 (09:48→14:30)
[2020-02-18] MEDS: Famotidine 20 MG TAB PO SCH ×2 (10:38→19:58)
[2020-02-18] MEDS: Aspirin 325 mg Enteric Coated Tablet PO SCH (10:39)
[2020-02-18] MEDS: HumaLOG 300 UNITS/3 ML VIAL SC PRN ×3 (11:49→22:02)
[2020-02-18] MEDS ORDERED: Acetaminophen 325 MG/10.15 ML UDCUP PO PRN (13:58)
[2020-02-18] MEDS: metroNIDAZOLE 500 MG in Premix Bag 1 BAG IVPB SCH ×2 (14:30→23:17)
[2020-02-18] MEDS: Acetaminophen 650 MG/20.3 ML UDCUP PO PRN ×2 (14:37→22:01)
--- NOTE | 2020-02-18 16:44 | CT ---
CT CHEST WITHOUT CONTRAST CLINICAL INDICATION: Abnormal lung exam. Fever. Suspect Covid COMPARISON: None FINDINGS: Aorta: Limited evaluation due to lack of intravenous contrast. Minimal vascular calcifications are se en in the aortic arch. Lungs: There is a dense area of consolidation seen within the lungs bilaterally greater on the left w ith associated air bronchograms. Findings are worrisome for atypical infectious process and possibly attributable to Covid pneumonia. No pleural effusion is seen. Mediastinum: Lack of intravenous contrast limits evaluation of the mediastinal structures. No definit e enlarged lymph nodes are seen. Thyroid gland: Within normal limits where imaged. Osseous structures: Mild degenerative changes in the spine. Sclerotic densities are seen in the maza um with a few scattered sclerotic densities in mid thoracic vertebral bodies. Findings are unchanged compared to prior study in 2018, and the sclerotic densities are likely attributable to mul tiple bone islands. Chest wall: No abnormality visualized. Upper abdomen: Gallbladder calculi are visualized. There is also slight increased density within the gallbladder likely due to associated sludge. Low-density lesion is seen medial aspect midportion right kidney measuring 1.7 cm. This difficult to adequately characterize on this exam but probably re presents a renal cyst. Low-density lesion was seen in this region on a CT examination 2015 which measured 1.2 cm on that exam. IMPRESSION: 1. Dense areas of consolidation throughout each lung greater on the left with findings suggestive of atypical infectious process, and Covid pneumonia is a differential consideration. 2. Low-density lesion midportion right kidney not well assessed on this precontrast exam and is incom pletely imaged. Low-density structure was seen in this region on prior CT abdomen in 2015, and findings are likely related to a renal cyst. 3. Cholelithiasis with probable gallbladder sludge.
--- NOTE | 2020-02-18 17:53 | PDOC.HOSPP ---
- Subjective Encounter Date: 02/18/20 Encounter Time: 09:00 Subjective: Patient seen for follow-up regarding sepsis. She is confused, could not complete review of systems. - Objective Vital Signs & Weight: Vital Signs (12 hours) Temp Pulse Resp BP Pulse Ox 02/18/20 16:16 94 L 02/18/20 15:00 97.7 F 113 H 20 153/84 H 94 L 02/18/20 14:37 101.0 F H 02/18/20 11:00 101.1 F H 128 H 28 H 150/80 H 85 L 02/18/20 08:08 90 L 02/18/20 07:00 101 F H 121 H 24 H 143/84 H 90 L Weight Weight 152 lb 5.431 oz Result Diagrams: 02/18/20 07:58 02/18/20 07:58 Additional Labs: Accuchecks 02/18/20 02/18/20 02/18/20 16:53 10:49 05:20 POC Glucose 292 H 293 H 278 H 02/17/20 02/17/20 02/17/20 21:54 19:15 18:07 POC Glucose 210 H 310 H 381 H I reviewed patient's labs and MAR EKG Reviewed by me: Yes (Sinus tachycardia on telemetry) Hospitalist ROS - Review of Systems ROS unobtainable: due to mental status - Medication Medications: Active Medications Generic Name Dose Route Start Last Admin Trade Name Freq PRN Reason Stop Dose Admin Acetaminophen 650 mg 02/18/20 14:03 02/18/20 14:37 Acetaminophen 650 Mg/20.3 Ml Udcup PO 650 mg Q6H PRN Administration Headache/Fever or Pain Aspirin 325 mg 02/18/20 09:00 02/18/20 10:39 Aspirin 325 Mg Enteric Coated Tablet PO 325 mg DAILY MECCA Administration Enoxaparin Sodium 40 mg 02/18/20 09:00 02/18/20 08:09 Enoxaparin Sodium 40 Mg/0.4 Ml Syringe SC 40 mg 0900 MECCA Administration Famotidine 20 mg 02/18/20 09:00 02/18/20 10:38 Famotidine 20 Mg Tab PO 20 mg BID MECCA Administration Sodium Chloride 1,000 mls @ 125 mls/hr 02/17/20 22:30 02/18/20 08:11 Normal Saline 0.9% IV 1,000 mls .Q8H MECCA Administration Cefepime HCl 2 gm/ Sodium 100 mls @ 200 mls/hr 02/18/20 08:00 02/18/20 08:08 Chloride IVPB 100 mls 0800,2000 MECCA Administration Metronidazole 500 mg/ Device 100 mls @ 100 mls/hr 02/18/20 14:00 02/18/20 14:30 IVPB 100 mls Q8HR MECCA Administration Insulin Human Lispro 0 units 02/17/20 22:33 02/18/20 17:11 Humalog 300 Units/3 Ml Vial SC 6 unit .MODERATE SLIDING SC PRN Administration Moderate Correctional Scale Sodium Chloride 10 ml 02/18/20 09:00 02/18/20 09:48 Flush - Normal Saline 10 Ml Syringe IVF 10 ml Q12HR MECCA Administration - Exam General Appearance: ill appearing Eye: anicteric sclera ENT: normocephalic atraumatic Neck: supple Heart - other findings: S1, S2, regular and tachycardic Respiratory: rhonchi Gastrointestinal: soft, non-tender Extremities: no edema Skin: no rashes Neurological - other findings: Unable to assess Psychiatric - other findings: Unable to assess Hosp A/P (1) Sepsis Code(s): A41.9 - SEPSIS, UNSPECIFIED ORGANISM Status: Acute (2) Diabetes mellitus type 2 in nonobese Code(s): E11.9 - TYPE 2 DIABETES MELLITUS WITHOUT COMPLICATIONS Status: Chronic (3) Hypertension Code(s): I10 - ESSENTIAL (PRIMARY) HYPERTENSION Status: Chronic (4) Noncompliance with medication regimen Code(s): Z91.14 - PATIENT'S OTHER NONCOMPLIANCE WITH MEDICATION REGIMEN Status: Chronic - Plan Continue cefepime and vancomycin, await cultures. Patient had an episode of choking on food overnight, start metronidazole for possible aspiration. Consult ID service for opinion and help with management. No clear evidence of source for sepsis. Continue Accu-Cheks and insulin sliding scale. Monitor vital signs and titrate antihypertensives as needed. Patient's mother updated by bedside. We will direct care counselor patient regarding medication compliance when her cognition improves.
--- NOTE | 2020-02-18 17:57 | CON ---
DATE OF CONSULTATION: 02/18/2020 REASON FOR CONSULTATION: Fever. HISTORY OF PRESENT ILLNESS: A 49-year-old who has a history of hypertension, type 2 diabetes, and prior [id number] elevation GA, who presented to the emergency room on 02/16 with slurred speech, confusion, hyperglycemia, and feeling unwell for the past week. No described shortness of breath. Some cough, which has been worsening. Other findings included a BP 120/70, pulse 126, temperature 97.9, and O2 saturation 98% on room air initially. She remained tachycardic and tachypneic. On exam, the lung was described as clear breath sounds, heart exam and abdomen examination normal. Other findings; white cell count 13,000, hemoglobin 15, and platelets 276 with 77% neutrophils. INR 1.0. Sodium 146 and creatinine 1.63, baseline is 0.86. Alkaline phosphatase 133 and the transaminases and bilirubin normal. Lactic acid 3.8. Albumin 4.2 and globulin 3.9. Urinalysis with 4-6 wbc's. Toxicology with an elevated beta hydroxybutyrate 2.02. SARS-CoV-2 PCR not detected x1. Chest x- ray with areas of atelectasis in the left basilar area. She has remained febrile up to 101.1 as recent as about an hour ago. Currently, she is tachypneic and keeps pulling her O2 nasal cannula supplementation. She denies headaches. No visual symptoms. Wants to go home. Coughing intermittently during the exam. No abdominal pain. No genitourinary symptoms or diarrhea. No neurological symptoms. PAST MEDICAL HISTORY: 1. Prior CVA. 2. [id number] GA. 3. Type 2 diabetes. 4. Hypertension. PAST SURGICAL HISTORY: 1. . 2. Hysterectomy. 3. Tonsillectomy. 4. Repair of leg and ankle fracture. SOCIAL HISTORY: Never smoker. FAMILY HISTORY: Son was diagnosed with SARS-CoV-2 infection about a week before this admission. ALLERGIES: PENICILLINS WITH RASH. CURRENT MEDICATIONS: 1. Cefepime. 2. Enoxaparin. 3. Famotidine. 4. Glucagon.. 6. Flagyl. 7. Vancomycin. PHYSICAL EXAMINATION: VITAL SIGNS: T-max 101.1, blood pressure 150/80, O2 saturations are 86 on 3 L, but she keeps removing the nasal cannula O2, so this must not be accurate. According to the nurse, her O2 sats go up to 90 to 93 when wearing the nasal cannula consistently. SKIN: No areas of skin breakdown. Peripheral IV access, voiding in the diaper. No lymphadenopathy. HEENT: Ocular movements conjugate. Oral cavity with somewhat dry oral mucosa. Quite a bit of dental decay noted. LUNGS: With scattered inspiratory crackles in right and left hemithorax up to a third of each side. HEART: S1 and S2. Regular rate without murmurs. ABDOMEN: Soft, not distended or tender. No ascites. No bladder distention. EXTREMITIES: No joint inflammatory activity. Pulses 1+ in dorsalis pedis. No edema. Moves all extremities equally. NEUROLOGIC: Awake and oriented, follows commands, appears to be a little unrealistic in her request to go home. Evidently, she is not in clinical stability for discharge planning at this moment. LABORATORY DATA: Latest white cell count 4.2, hemoglobin 14.5, and lymphocytes 1.2. Creatinine is down to 1.19 and glucose is 293. Two sets of blood culture, no growth thus far. ASSESSMENT: 1. Type 2 diabetes. 2. Hypertension. 3. Prior myocardial infarction. 4. Prior cerebrovascular accident with respiratory infection, either a bacterial or viral in nature. Evidently, with a history of COVID-19 in her family recently, this is the more likely scenario despite one negative SARS-CoV-2 PCR test. In her case, she has a pretest likelihood at least 80%, so one negative test would reduce it to no more than 50%. We will go ahead and order a CT of chest and repeat the SARS-CoV-2 PCR test. Even if the 2nd is negative in the face of a typical CT scan, we will have to manage the patient as SARS-CoV-2 infection. Resume isolation. Job ID: [id number] MTDD
[2020-02-18] MEDS ORDERED: Vancomycin 1 GM in Premix Bag 1 BAG IVPB SCH (20:00)
[2020-02-18] MEDS ORDERED: FLU VACC QS2020-21(6MOS UP)/PF 60 MCG/0.5 ML SYRINGE IM ONE (21:00)
[2020-02-18] MEDS ORDERED: Azithromycin 500 MG in Sodium Chloride 0.9% 250 ML 250 ML IVPB SCH (21:00)
[2020-02-19] MEDS: hydrALAZINE 20 MG/ML VIAL SLOW IVP PRN ×3 (00:47→09:41)
[2020-02-19 01:36] LABS: SARS-CoV-2 MS2 Positive; SARS-CoV-2 N Gene Negative; SARS-CoV-2 S Gene Negative; SARS-CoV-2 by NAA Not Detected (NotDetected); SARS-CoV-2 orf1ab Negative
[2020-02-19] MEDS: Sodium Chloride 0.9% 1,000 ML IV SCH ×4 (02:16→22:17)
[2020-02-19] MEDS: metroNIDAZOLE 500 MG in Premix Bag 1 BAG IVPB SCH ×2 (05:36→14:36)
[2020-02-19 05:46] LABS: Anion Gap 16 mmol/L (10-20); BUN (Urea Nitrogen) 29 mg/dL (7.0-18.7); Calc. Creatinine Clearance 73 mL/min (70-130); Calcium 8.3 mg/dL (7.8-10.44); Carbon Dioxide 22 mmol/L (22-29); Chloride 110 mmol/L (98-107); Glucose 188 mg/dL (70-105); Potassium 3.3 mmol/L (3.5-5.1); Sodium 145 mmol/L (136-145)
[2020-02-19 06:17] LABS: Band 17 % (5-11); Hemoglobin 12.5 g/dL (12.0-16.0); Lymphocytes 25 % (21-51); MDiff Complete? YES; Mean Corpuscular HGB CONC 33.3 g/dL (32.0-36.0); Mean Corpuscular Hemoglobin 27.6 pg (27.0-31.0); Mean Corpuscular Volume 82.9 fL (78.0-98.0); Mean Platelet Volume 9.6 fL (7.4-10.4); Monocytes 7 % (0-10); Neutrophil 51 % (42-75); Platelet Count 155 thou/uL (130-400); Platelet Morphology Comment Appears Adequate; RBC Distribution Width 12.5 % (11.5-14.5); Red Blood Cell (RBC) Count 4.51 mill/uL (4.20-5.40); White Blood Cell (WBC) Count 8.9 thou/uL (4.8-10.8)
[2020-02-19] MEDS: HumaLOG 300 UNITS/3 ML VIAL SC PRN ×4 (06:17→21:39)
[2020-02-19] MEDS: Famotidine 20 MG TAB PO SCH ×2 (09:39→21:45)
[2020-02-19] MEDS: Acetaminophen 650 MG/20.3 ML UDCUP PO PRN (09:39)
[2020-02-19] MEDS: Enoxaparin Sodium 40 MG/0.4 ML SYRINGE SC SCH ×2 (09:39→21:39)
[2020-02-19] MEDS: Aspirin 325 mg Enteric Coated Tablet PO SCH (09:39)
[2020-02-19] MEDS: Labetalol HCl 100 MG/20 ML VIAL SLOW IVP PRN ×2 (12:53→21:45)
[2020-02-19 14:43] LABS: SARS-CoV-2 IgG Ab Reactive (NonReactive); SARS-CoV-2 IgG Index 2.55 S/CO (< 1.40)
--- NOTE | 2020-02-19 17:53 | PRG ---
DATE OF SERVICE: 02/19/2020 SUBJECTIVE: Ms. Vizcaino has been transferred to the observation unit. She is awake. She states that she is feeling okay. She appears a little bit apprehensive and is a little bit diaphoretic. She denies any chest pain. Some cough. No abdominal pain. No change in neurological status. OBJECTIVE: VITAL SIGNS: Her temperature has been within normal limits for the past few hours and blood pressure 140/70. She is breathing at 46 times a minute, pulse is 96, saturating 99% to 100% on a high-flow nasal cannula, 62% FiO2 calculated. GENERAL: Awake and alert. LUNGS: With scattered crackles in the right and left hemithorax. HEART: S1 and S2, regular rate. ABDOMEN: Soft, not distended or tender. NEUROLOGIC: Left hemiparesis as previously noted. LABORATORY DATA: White cell count 8.9, hemoglobin 12.5 platelets 155. Creatinine 1.0. SARS-CoV2 antibody index was positive at 2.55. The second SARS-CoV PCR was negative. The CT of chest showed bilateral infiltrates with a more central location, right and left side consistent with SARS-CoV2 infection. Blood culture negative at 48 hours. She is currently on azithromycin, Flagyl, and vancomycin. ASSESSMENT AND DISCUSSION: Type 2 diabetes, hypertension, prior myocardial infarction, prior cerebrovascular accident, and likely severe SARS-CoV2 infection with pneumonia. The patient will be started on Decadron and remdesivir, and I think she needs to be transferred to the IMCU at least if not ICU. Her VAMSI index for intubation is calculated at 3.51 points, which places her at the high risk for requirement for intubation. Job ID: [id number]
[2020-02-19] MEDS: Dexamethasone 4 mg/ml Vial SLOW IVP SCH ×2 (18:30→18:37)
--- NOTE | 2020-02-19 19:08 | PDOC.HOSPP ---
- Subjective Encounter Date: 02/19/20 Encounter Time: 18:00 Subjective: Patient seen for follow-up regarding pneumonia., Could not complete review of systems. - Objective Vital Signs & Weight: Vital Signs (12 hours) Temp Pulse Resp BP Pulse Ox 02/19/20 16:30 98.4 F 96 46 H 147/71 H 100 02/19/20 14:25 99 143/65 H 02/19/20 12:53 116 H 02/19/20 12:26 98.8 F 116 H 48 H 176/76 H 98 02/19/20 11:00 116 H 177/85 H 02/19/20 10:09 98.8 F 02/19/20 10:04 93 L 02/19/20 09:41 115 H 02/19/20 09:00 99.6 F 111 H 36 H 206/91 H 98 Weight Weight 152 lb 5.431 oz I&O: 02/18/20 02/19/20 02/20/20 06:59 06:59 06:59 Intake Total 1565 180 Output Total 800 Balance 765 180 Result Diagrams: 02/19/20 05:21 02/19/20 05:21 Additional Labs: Accuchecks 02/19/20 02/19/20 02/18/20 16:43 12:24 20:21 POC Glucose 307 H 273 H 358 H Labs and MAR reviewed by me EKG Reviewed by me: Yes (Telemetry shows sinus tachycardia) Hospitalist ROS - Review of Systems ROS unobtainable: due to mental status - Medication Medications: Active Medications Generic Name Dose Route Start Last Admin Trade Name Freq PRN Reason Stop Dose Admin Acetaminophen 650 mg 02/18/20 14:03 02/19/20 09:39 Acetaminophen 650 Mg/20.3 Ml Udcup PO 650 mg Q6H PRN Administration Headache/Fever or Pain Aspirin 325 mg 02/18/20 09:00 02/19/20 09:39 Aspirin 325 Mg Enteric Coated Tablet PO 325 mg DAILY MECCA Administration Dexamethasone 6 mg 02/19/20 18:00 02/19/20 18:37 Dexamethasone 4 Mg/Ml Vial SLOW IVP 6 mg 1800 MECCA Administration Enoxaparin Sodium 40 mg 02/18/20 09:00 02/19/20 09:39 Enoxaparin Sodium 40 Mg/0.4 Ml Syringe SC 40 mg 0900 MECCA Administration Famotidine 20 mg 02/18/20 09:00 02/19/20 09:39 Famotidine 20 Mg Tab PO 20 mg BID MECCA Administration Hydralazine HCl 5 mg 02/18/20 23:03 02/19/20 09:41 Hydralazine 20 Mg/Ml Vial SLOW IVP 5 mg Q4H PRN Administration SBP Greater Than 180 Sodium Chloride 1,000 mls @ 100 mls/hr 02/18/20 23:02 02/19/20 14:35 Normal Saline 0.9% IV 1,000 mls .Q10H MECCA Administration Insulin Human Lispro 0 units 02/17/20 22:33 02/19/20 18:31 Humalog 300 Units/3 Ml Vial SC 8 unit .MODERATE SLIDING SC PRN Administration Moderate Correctional Scale Labetalol HCl 10 mg 02/19/20 11:23 02/19/20 12:53 Labetalol Hcl 100 Mg/20 Ml Vial SLOW IVP 10 mg Q4H PRN Administration SBP Greater Than 170 Sodium Chloride 10 ml 02/18/20 09:00 02/19/20 09:40 Flush - Normal Saline 10 Ml Syringe IVF 10 ml Q12HR MECCA Administration - Exam General - other findings: [place]: anicteric sclera ENT: normocephalic atraumatic Neck: supple Heart - other findings: S1, S2, regular and tachycardic Respiratory: rales, rhonchi Gastrointestinal: soft, non-tender Extremities: no cyanosis Skin: no rashes Musculoskeletal: normal tone Psychiatric: normal affect, lethargic Hosp A/P (1) Pneumonia Code(s): J18.9 - PNEUMONIA, UNSPECIFIED ORGANISM Status: Acute (2) Sepsis Code(s): A41.9 - SEPSIS, UNSPECIFIED ORGANISM Status: Acute (3) Diabetes mellitus type 2 in nonobese Code(s): E11.9 - TYPE 2 DIABETES MELLITUS WITHOUT COMPLICATIONS Status: Chronic (4) Hypertension Code(s): I10 - ESSENTIAL (PRIMARY) HYPERTENSION Status: Chronic (5) Noncompliance with medication regimen Code(s): Z91.14 - PATIENT'S OTHER NONCOMPLIANCE WITH MEDICATION REGIMEN Status: Chronic - Plan Antibiotics have been discontinued and patient has been started on dexamethasone and remdesivir. Patient continues to be tachypneic, on high flow oxygen. We will transfer her to [facility] for further management. Continue Accu-Cheks and insulin sliding scale. Start vitamin C, zinc and vitamin D. Change Lovenox to 40 mg twice daily Follow inflammatory markers.
[2020-02-19 19:19] LABS: Vancomycin, Trough 6.2 ug/mL
[2020-02-19] MEDS ORDERED: Ascorbic Acid 500 mg Chewable Tablet PO SCH (19:30)
[2020-02-19] MEDS ORDERED: Zinc Sulfate 220 MG CAP PO SCH (19:30)
[2020-02-19] MEDS: Cholecalciferol 1,000 UNITS (25 MCG) TAB PO SCH (21:38)
[2020-02-19] MEDS ORDERED: REMDESIVIR (EUA) 200 MG in Sodium Chloride 0.9% 250 ML 210 ML IV SCH (23:00)
[2020-02-20] MEDS: hydrALAZINE 20 MG/ML VIAL SLOW IVP PRN ×2 (01:26→09:43)
[2020-02-20] MEDS: Acetaminophen 650 MG/20.3 ML UDCUP PO PRN (01:28)
[2020-02-20 03:56] LABS: #Lymphocytes 0.6 thou/uL (1.20-3.40); #Monocytes 0.2 thou/uL (0.11-0.59); #Neutrophils 6.8 thou/uL (1.40-6.50); %Eosinophils 0.2 % (0.0-10.0); %Lymphocytes 7.3 % (21.0-51.0); %Monocytes 2.7 % (0.0-10.0); %Neutrophils 89.8 % (42.0-75.0); Hemoglobin 10.9 g/dL (12.0-16.0); Mean Corpuscular HGB CONC 32.5 g/dL (32.0-36.0); Mean Corpuscular Hemoglobin 26.9 pg (27.0-31.0); Mean Corpuscular Volume 82.8 fL (78.0-98.0); Mean Platelet Volume 10.2 fL (7.4-10.4); Platelet Count 169 thou/uL (130-400); RBC Distribution Width 12.5 % (11.5-14.5); Red Blood Cell (RBC) Count 4.06 mill/uL (4.20-5.40); White Blood Cell (WBC) Count 7.6 thou/uL (4.8-10.8)
[2020-02-20 04:08] LABS: Anion Gap 16 mmol/L (10-20); BUN (Urea Nitrogen) 20 mg/dL (7.0-18.7); Calc. Creatinine Clearance 82 mL/min (70-130); Carbon Dioxide 20 mmol/L (22-29); Chloride 109 mmol/L (98-107); Sodium 142 mmol/L (136-145)
[2020-02-20 04:09] LABS: Calcium 8.1 mg/dL (7.8-10.44); Glucose 318 mg/dL (70-105)
[2020-02-20 04:10] LABS: Potassium 2.9 mmol/L (3.5-5.1)
[2020-02-20 04:11] LABS: ALT (SGPT) 14 U/L (8-55); AST (SGOT) 18 U/L (5-34); Albumin 2.7 g/dL (3.5-5.0); Alkaline Phosphatase 90 U/L (40-110); Bilirubin, Direct 0.2 mg/dL (0.1-0.3); Bilirubin, Total 0.4 mg/dL (0.2-1.2); CRP (Inflammatory) 31.59 mg/dL (= or < 0.5); Protein, Total 5.8 g/dL (6.0-8.3)
[2020-02-20] MEDS ORDERED: Potassium Chloride 20 MEQ TAB PO SCH (04:30)
[2020-02-20] MEDS: HumaLOG 300 UNITS/3 ML VIAL SC PRN ×4 (04:55→21:34)
[2020-02-20] MEDS: Aspirin 325 mg Enteric Coated Tablet PO SCH (08:53)
[2020-02-20] MEDS: Sodium Chloride 0.9% 1,000 ML IV SCH ×2 (08:53→18:22)
[2020-02-20] MEDS: Ascorbic Acid 500 mg Chewable Tablet PO SCH (08:54)
[2020-02-20] MEDS: Zinc Sulfate 220 MG CAP PO SCH (08:54)
[2020-02-20] MEDS: Famotidine 20 MG TAB PO SCH ×2 (08:54→21:06)
[2020-02-20] MEDS: Enoxaparin Sodium 40 MG/0.4 ML SYRINGE SC SCH ×2 (08:54→21:06)
--- NOTE | 2020-02-20 11:08 | CON ---
DATE OF CONSULTATION: 02/20/2020 CONSULTING PHYSICIAN: Hospitalist Group. REASON FOR CONSULTATION: Possible COVID pneumonia. HISTORY OF PRESENT ILLNESS: Keara is a 49-year-old female, who was initially admitted to the hospital on 02/16 with altered mental status. She was admitted for encephalopathy, diabetes, and hyperglycemia. For reasons that are not completely clear to me, she was transferred to the [facility] last night for BiPAP therapy and high-flow, but has already been weaned to nasal cannula. I believe, the thought is that she has COVID pneumonia. However, her antibody profile actually shows that she probably had this in the past and is not testing positive via PCR on 2 separate tests obtained yesterday. PAST MEDICAL HISTORY: She denies any medical problems, although the history and physical says she has diabetes, hypertension, and a previous stroke. PAST SURGICAL HISTORY: , hysterectomy, tonsillectomy, left ankle repair. SOCIAL HISTORY: nonsmoker ALLERGIES: PENICILLINS. MEDICATIONS PRIOR TO ADMISSION: 1. Insulin. 2. Hydralazine. 3. Zestril. REVIEW OF SYSTEMS: Difficult to obtain because of her confusion. PHYSICAL EXAMINATION: VITAL SIGNS: Temperature 98.5, pulse 103, blood pressure 137/102, O2 saturation 100% on 3 L nasal cannula. GENERAL: She is awake and alert and in no distress. HEENT: Unremarkable. NECK: No adenopathy or JVD. LUNGS: She has clear breath sounds without wheezing or rhonchi. CARDIOVASCULAR: S1, S2 regular with 2/6 systolic murmur. ABDOMEN: Soft, obese, nontender, and nondistended. EXTREMITIES: No clubbing, cyanosis, or edema. LABORATORY DATA: White blood cell count 7.6, hematocrit 33.6, and platelet count 169. PH 7.46, pCO2 of 34, pO2 of 162. Sodium 142, potassium 2.9, chloride 109, CO2 of 20, BUN 20, creatinine 0.8, glucose 318. A CT of the chest that was obtained on the demonstrates fairly prominent upper lobe infiltrates with air bronchograms. Chest x-ray actually does not show these infiltrates. ASSESSMENT: 1. Pneumonia versus pulmonary edema. 2. Antibody profile and negative COVID test do not necessarily support that she has an acute COVID infection, although she may have had one in the distant past. 3. Diabetes mellitus. 4. Acute hypoxic respiratory failure - better today. RECOMMENDATIONS: 1. I would check an echocardiogram and make sure her cardiac status is okay. The last one I see in the computer was around 2018. At that time, she had some diastolic dysfunction. 2. Check BNP level. 3. Further recommendations per Dr. Vela. Job ID: [id number]
[2020-02-20] MEDS ORDERED: Amlodipine 5 MG TAB PO SCH (11:30)
[2020-02-20] MEDS: Enalaprilat Dihydrate 1.25 MG/ML VIAL SLOW IVP PRN (15:11)
[2020-02-20] MEDS: Dexamethasone 4 mg/ml Vial SLOW IVP SCH (17:16)
--- NOTE | 2020-02-20 18:46 | PDOC.HOSPP ---
- Subjective Encounter Date: 02/20/20 Encounter Time: 09:00 Subjective: Patient seen for follow-up regarding pneumonia. She is on oxygen by nasal cannula, denies chest pain. - Objective Vital Signs & Weight: Vital Signs (12 hours) BP Pulse Ox 02/20/20 12:00 99 02/20/20 11:25 94 L 02/20/20 09:43 189/91 H 02/20/20 08:20 97 Weight Weight 152 lb 5.431 oz Most Recent Monitor Data Heart Rate from ECG 107 NIBP 164/81 NIBP BP-Mean 108 Respiration from ECG 25 SpO2 100 I&O: 02/19/20 02/20/20 02/21/20 06:59 06:59 06:59 Intake Total 1565 2341 Output Total 800 750 Balance 765 1591 Result Diagrams: 02/20/20 03:18 02/20/20 03:18 Additional Labs: Accuchecks 02/20/20 02/20/20 02/20/20 17:18 12:28 04:58 POC Glucose 342 H 357 H 294 H 02/19/20 21:12 POC Glucose 304 H I reviewed patient's labs and MAR EKG Reviewed by me: Yes (Normal sinus rhythm on telemetry) Hospitalist ROS - Review of Systems Respiratory: reports: cough, dry, SOB with excertion. denies: shortness of breath, hemoptysis, pleuritic pain, sputum, wheezing Cardiovascular: denies: chest pain, palpitations, orthopnea, paroxysmal noc. dyspnea, edema, light headedness - Medication Medications: Active Medications Generic Name Dose Route Start Last Admin Trade Name Freq PRN Reason Stop Dose Admin Acetaminophen 650 mg 02/18/20 14:03 02/20/20 01:28 Acetaminophen 650 Mg/20.3 Ml Udcup PO 650 mg Q6H PRN Administration Headache/Fever or Pain Ascorbic Acid 1,000 mg 02/20/20 09:00 02/20/20 08:54 Ascorbic Acid 500 Mg Chewable Tablet PO 1,000 mg DAILY MECCA Administration Aspirin 325 mg 02/18/20 09:00 02/20/20 08:53 Aspirin 325 Mg Enteric Coated Tablet PO 325 mg DAILY MECCA Administration Cholecalciferol 1,000 units 02/19/20 21:00 02/19/20 21:38 Cholecalciferol 1,000 Units (25 Mcg) Tab PO 1,000 units HS MECCA Administration Dexamethasone 6 mg 02/19/20 18:00 02/20/20 17:16 Dexamethasone 4 Mg/Ml Vial SLOW IVP 6 mg 1800 MECCA Administration Enalaprilat 2.5 mg 02/20/20 14:30 02/20/20 15:11 Enalaprilat Dihydrate 1.25 Mg/Ml Vial SLOW IVP 2.5 mg Q6H PRN Administration SBP Greater Than 170 Enoxaparin Sodium 40 mg 02/19/20 21:00 02/20/20 08:54 Enoxaparin Sodium 40 Mg/0.4 Ml Syringe SC 40 mg 0900,2100 MECCA Administration Famotidine 20 mg 02/18/20 09:00 02/20/20 08:54 Famotidine 20 Mg Tab PO 20 mg BID MECCA Administration Hydralazine HCl 5 mg 02/18/20 23:03 02/20/20 09:43 Hydralazine 20 Mg/Ml Vial SLOW IVP 5 mg Q4H PRN Administration SBP Greater Than 180 Sodium Chloride 1,000 mls @ 100 mls/hr 02/18/20 23:02 02/20/20 18:22 Normal Saline 0.9% IV 1,000 mls .Q10H MECCA Administration Insulin Human Lispro 0 units 02/17/20 22:33 02/20/20 18:22 Humalog 300 Units/3 Ml Vial SC 8 unit .MODERATE SLIDING SC PRN Administration Moderate Correctional Scale Labetalol HCl 10 mg 02/19/20 11:23 02/19/20 21:45 Labetalol Hcl 100 Mg/20 Ml Vial SLOW IVP 10 mg Q4H PRN Administration SBP Greater Than 170 Sodium Chloride 10 ml 02/18/20 09:00 02/20/20 08:57 Flush - Normal Saline 10 Ml Syringe IVF 10 ml Q12HR MECCA Administration Zinc Sulfate 220 mg 02/20/20 09:00 02/20/20 08:54 Zinc Sulfate 220 Mg Cap PO 220 mg DAILY MECCA Administration - Exam General Appearance: awake alert ENT: normocephalic atraumatic Neck: supple Heart: RRR Respiratory: rales, rhonchi Gastrointestinal: soft, non-tender Skin: no rashes Psychiatric: normal affect, normal behavior Hosp A/P (1) Pneumonia Code(s): J18.9 - PNEUMONIA, UNSPECIFIED ORGANISM Status: Acute (2) Sepsis Code(s): A41.9 - SEPSIS, UNSPECIFIED ORGANISM Status: Acute (3) Diabetes mellitus type 2 in nonobese Code(s): E11.9 - TYPE 2 DIABETES MELLITUS WITHOUT COMPLICATIONS Status: Chronic (4) Hypertension Code(s): I10 - ESSENTIAL (PRIMARY) HYPERTENSION Status: Chronic (5) Noncompliance with medication regimen Code(s): Z91.14 - PATIENT'S OTHER NONCOMPLIANCE WITH MEDICATION REGIMEN Status: Chronic - Plan Patient appears to have improved today, is off of high flow oxygen. Patient to be continued on dexamethasone and remdesivir for suspected COVID-19 associated pneumonia. Covid test negative but Covid antibody test positive. Continue Accu-Cheks and insulin sliding scale. Continue vitamin C, zinc and vitamin D. Continue Lovenox 40 mg twice daily Follow inflammatory markers.
[2020-02-20] MEDS: Cholecalciferol 1,000 UNITS (25 MCG) TAB PO SCH (21:06)
[2020-02-21] MEDS: Labetalol HCl 100 MG/20 ML VIAL SLOW IVP PRN ×2 (01:08→23:16)
[2020-02-21] MEDS: REMDESIVIR (EUA) 100 MG in Sodium Chloride 0.9% 250 ML 230 ML IV SCH ×2 (01:08→22:01)
[2020-02-21] MEDS: HumaLOG 300 UNITS/3 ML VIAL SC PRN ×4 (06:14→19:56)
[2020-02-21] MEDS ORDERED: Amlodipine 5 MG TAB PO SCH ×2 (09:00→10:30)
[2020-02-21] MEDS: Zinc Sulfate 220 MG CAP PO SCH (09:02)
[2020-02-21] MEDS: Famotidine 20 MG TAB PO SCH ×2 (09:02→19:48)
[2020-02-21] MEDS: Ascorbic Acid 500 mg Chewable Tablet PO SCH (09:02)
[2020-02-21] MEDS: Aspirin 325 mg Enteric Coated Tablet PO SCH (09:02)
[2020-02-21] MEDS: Enoxaparin Sodium 40 MG/0.4 ML SYRINGE SC SCH ×2 (09:02→19:48)
[2020-02-21] MEDS: Sodium Chloride 0.9% 1,000 ML IV SCH ×2 (09:04→17:27)
[2020-02-21] MEDS: hydrALAZINE 20 MG/ML VIAL SLOW IVP PRN ×2 (09:29→14:42)
--- NOTE | 2020-02-21 10:26 | PRG ---
DATE OF SERVICE: 02/21/2020 SUBJECTIVE: The patient is about the same. She has been weaned down to a nasal cannula. OBJECTIVE: VITAL SIGNS: Temperature 98.0, pulse 103, blood pressure 203/110, O2 saturation 100%. HEENT: Unremarkable. NECK: No adenopathy or JVD. LUNGS: Fairly clear anteriorly. CARDIAC: S1 and S2, regular. ABDOMEN: Soft. EXTREMITIES: No edema. LABORATORY DATA: I do not see any new labs today. ASSESSMENT: 1. Pneumonia versus pulmonary edema. 2. Probably, has had past COVID infection, but I doubt active. PLAN: 1. Wean oxygen. 2. Needs better control of her blood pressure. 3. Further recommendations per Dr. Vela. Job ID: [id number]
[2020-02-21 11:02] LABS: #Lymphocytes 0.7 thou/uL (1.20-3.40); #Monocytes 0.4 thou/uL (0.11-0.59); #Neutrophils 11.4 thou/uL (1.40-6.50); %Eosinophils 0.1 % (0.0-10.0); %Lymphocytes 5.2 % (21.0-51.0); %Monocytes 3.3 % (0.0-10.0); %Neutrophils 91.4 % (42.0-75.0); Hemoglobin 11.6 g/dL (12.0-16.0); Mean Corpuscular HGB CONC 32.3 g/dL (32.0-36.0); Mean Corpuscular Hemoglobin 26.7 pg (27.0-31.0); Mean Corpuscular Volume 82.8 fL (78.0-98.0); Mean Platelet Volume 9.8 fL (7.4-10.4); Platelet Count 230 thou/uL (130-400); Red Blood Cell (RBC) Count 4.34 mill/uL (4.20-5.40); White Blood Cell (WBC) Count 12.5 thou/uL (4.8-10.8)
[2020-02-21 11:17] LABS: Anion Gap 16 mmol/L (10-20); BUN (Urea Nitrogen) 23 mg/dL (7.0-18.7); Calc. Creatinine Clearance 78 mL/min (70-130); Calcium 8.2 mg/dL (7.8-10.44); Carbon Dioxide 22 mmol/L (22-29); Chloride 104 mmol/L (98-107); Glucose 382 mg/dL (70-105); Sodium 139 mmol/L (136-145)
[2020-02-21 11:18] LABS: ALT (SGPT) 14 U/L (8-55); AST (SGOT) 16 U/L (5-34); Albumin 2.8 g/dL (3.5-5.0); Alkaline Phosphatase 101 U/L (40-110); Bilirubin, Direct 0.2 mg/dL (0.1-0.3); Bilirubin, Total 0.5 mg/dL (0.2-1.2); Protein, Total 5.8 g/dL (6.0-8.3)
[2020-02-21] MEDS: Enalaprilat Dihydrate 1.25 MG/ML VIAL SLOW IVP PRN (12:10)
[2020-02-21] MEDS: Dexamethasone 4 mg/ml Vial SLOW IVP SCH (17:27)
[2020-02-21] MEDS ORDERED: Insulin Glargine 10 UNITS in Pre-Filled Syringe SC SCH (17:30)
--- NOTE | 2020-02-21 18:25 | PDOC.HOSPP ---
- Subjective Encounter Date: 02/21/20 Encounter Time: 08:00 Subjective: Patient seen for follow-up regarding pneumonia. She is more alert today. Denies chest pain. - Objective Vital Signs & Weight: Vital Signs (12 hours) Temp Pulse Ox 02/21/20 16:00 97.7 F 02/21/20 12:04 98.5 F 02/21/20 12:00 100 02/21/20 08:35 96 02/21/20 08:00 98.0 F Weight Weight 152 lb 5.431 oz Most Recent Monitor Data Heart Rate from ECG 114 NIBP 150/87 NIBP BP-Mean 108 Respiration from ECG 23 SpO2 94 I&O: 02/20/20 02/21/20 02/22/20 06:59 06:59 06:59 Intake Total 2341 2700 2760 Output Total 750 1000 Balance 1591 1700 2760 Result Diagrams: 02/21/20 10:55 02/21/20 10:55 Additional Labs: Accuchecks 02/21/20 02/21/20 02/21/20 17:07 10:41 06:06 POC Glucose 389 H 366 H 299 H 02/20/20 21:16 POC Glucose 385 H Labs and MAR reviewed by me EKG Reviewed by me: Yes (Sinus tachycardia on telemetry) Hospitalist ROS - Review of Systems Respiratory: reports: cough, dry, SOB with excertion. denies: shortness of breath, hemoptysis, pleuritic pain, sputum, wheezing Cardiovascular: denies: chest pain, palpitations, orthopnea, paroxysmal noc. dyspnea, edema, light headedness - Medication Medications: Active Medications Generic Name Dose Route Start Last Admin Trade Name Alfred PRN Reason Stop Dose Admin Acetaminophen 650 mg 02/18/20 14:03 02/20/20 01:28 Acetaminophen 650 Mg/20.3 Ml Udcup PO 650 mg Q6H PRN Administration Headache/Fever or Pain Ascorbic Acid 1,000 mg 02/20/20 09:00 02/21/20 09:02 Ascorbic Acid 500 Mg Chewable Tablet PO 1,000 mg DAILY MECCA Administration Aspirin 325 mg 02/18/20 09:00 02/21/20 09:02 Aspirin 325 Mg Enteric Coated Tablet PO 325 mg DAILY MECCA Administration Cholecalciferol 1,000 units 02/19/20 21:00 02/20/20 21:06 Cholecalciferol 1,000 Units (25 Mcg) Tab PO 1,000 units HS MECCA Administration Dexamethasone 6 mg 02/19/20 18:00 02/21/20 17:27 Dexamethasone 4 Mg/Ml Vial SLOW IVP 6 mg 1800 MECCA Administration Enalaprilat 2.5 mg 02/20/20 14:30 02/21/20 12:10 Enalaprilat Dihydrate 1.25 Mg/Ml Vial SLOW IVP 2.5 mg Q6H PRN Administration SBP Greater Than 170 Enoxaparin Sodium 40 mg 02/19/20 21:00 02/21/20 09:02 Enoxaparin Sodium 40 Mg/0.4 Ml Syringe SC 40 mg 0900,2100 MECCA Administration Famotidine 20 mg 02/18/20 09:00 02/21/20 09:02 Famotidine 20 Mg Tab PO 20 mg BID MECCA Administration Hydralazine HCl 5 mg 02/18/20 23:03 02/21/20 14:42 Hydralazine 20 Mg/Ml Vial SLOW IVP 5 mg Q4H PRN Administration SBP Greater Than 180 Sodium Chloride 1,000 mls @ 100 mls/hr 02/18/20 23:02 02/21/20 17:27 Normal Saline 0.9% IV 1,000 mls .Q10H MECCA Administration Remdesivir 100 mg/ Sodium 250 mls @ 250 mls/hr 02/20/20 23:00 02/21/20 01:08 Chloride IV 02/23/20 23:59 250 mls 2300 MECCA Administration Insulin Glargine 10 units/ 0.1 mls @ 0 mls/hr 02/21/20 17:30 02/21/20 18:12 Miscellaneous Medication SC 02/21/20 19:30 0.1 mls NOW MECCA Administration Insulin Human Lispro 0 units 02/17/20 22:33 02/21/20 17:27 Humalog 300 Units/3 Ml Vial SC 10 unit .MODERATE SLIDING SC PRN Administration Moderate Correctional Scale Labetalol HCl 10 mg 02/19/20 11:23 02/21/20 01:08 Labetalol Hcl 100 Mg/20 Ml Vial SLOW IVP 10 mg Q4H PRN Administration SBP Greater Than 170 Sodium Chloride 10 ml 02/18/20 09:00 12/17/20 09:03 Flush - Normal Saline 10 Ml Syringe IVF 10 ml Q12HR MECCA Administration Zinc Sulfate 220 mg 02/20/20 09:00 02/21/20 09:02 Zinc Sulfate 220 Mg Cap PO 220 mg DAILY MECCA Administration - Exam General Appearance: awake alert Eye: anicteric sclera ENT: moist mucosa Neck: supple Heart - other findings: S1, S2, regular and tachycardic Respiratory: rales, rhonchi Gastrointestinal: soft, non-tender Skin: no rashes Psychiatric: normal affect, normal behavior, oriented to person, oriented to place Hosp A/P (1) Pneumonia Code(s): J18.9 - PNEUMONIA, UNSPECIFIED ORGANISM Status: Acute (2) Sepsis Code(s): A41.9 - SEPSIS, UNSPECIFIED ORGANISM Status: Acute (3) Diabetes mellitus type 2 in nonobese Code(s): E11.9 - TYPE 2 DIABETES MELLITUS WITHOUT COMPLICATIONS Status: Chronic (4) Hypertension Code(s): I10 - ESSENTIAL (PRIMARY) HYPERTENSION Status: Chronic (5) Noncompliance with medication regimen Code(s): Z91.14 - PATIENT'S OTHER NONCOMPLIANCE WITH MEDICATION REGIMEN Status: Chronic - Plan Patient improved significantly. Continue dexamethasone and remdesivir for suspected COVID-19 associated pneumonia. Covid test negative but Covid antibody test positive. Blood sugars are high, start Lantus 10 units daily. Patient is on vitamin C, zinc and vitamin D. DVT prophylaxis with Lovenox 40 mg twice daily Follow inflammatory markers. Blood sugars are high, add as needed IV Vasotec. Increase amlodipine to 10 mg daily. Start hydralazine 25 mg 4 times daily.
[2020-02-21] MEDS: hydrALAZINE 25 MG TAB PO SCH (19:48)
[2020-02-21] MEDS: Cholecalciferol 1,000 UNITS (25 MCG) TAB PO SCH (19:48)
--- NOTE | 2020-02-21 19:56 | PRG ---
DATE OF SERVICE: 02/21/2020 SUBJECTIVE: Ms. Vizcaino is alert. She is not diaphoretic. OBJECTIVE: GENERAL: Appears comfortable at rest. VITAL SIGNS: Temperature has normalized and O2 saturations have improved up to 100% with now nasal cannula at 6 L. BP 140/68. She is breathing 24 times a minute. LUNGS: With a few crackles scattered. HEART: S1-S2. Regular rate. ABDOMEN: Soft, not distended. LABORATORY DATA: White cell count 12.5, hemoglobin 11, platelets 230. Creatinine 0.94. Liver profile normal. The patient is currently on Decadron and remdesivir. ASSESSMENT AND DISCUSSION: Severe SARS-CoV-2 infection with pneumonia, type 2 diabetes, hypertension, prior VT, prior CVA, marked improvement. VAMSI index now is markedly improved up to 10.16. Continue the current management. Job ID: [id number]
[2020-02-22] MEDS: Sodium Chloride 0.9% 1,000 ML IV SCH ×2 (00:58→13:47)
[2020-02-22] MEDS: HumaLOG 300 UNITS/3 ML VIAL SC PRN ×4 (06:00→21:00)
[2020-02-22] MEDS: Labetalol HCl 100 MG/20 ML VIAL SLOW IVP PRN ×3 (06:23→16:35)
[2020-02-22] MEDS: Ascorbic Acid 500 mg Chewable Tablet PO SCH (08:00)
[2020-02-22] MEDS: Famotidine 20 MG TAB PO SCH ×2 (08:00→21:17)
[2020-02-22] MEDS: Amlodipine 10 MG TAB PO SCH (08:00)
[2020-02-22] MEDS: hydrALAZINE 25 MG TAB PO SCH ×4 (08:00→21:17)
[2020-02-22] MEDS: Aspirin 325 mg Enteric Coated Tablet PO SCH (08:01)
[2020-02-22] MEDS: Enoxaparin Sodium 40 MG/0.4 ML SYRINGE SC SCH ×2 (08:01→21:18)
[2020-02-22] MEDS: Insulin Glargine 10 UNITS in Pre-Filled Syringe SC SCH (08:01)
[2020-02-22] MEDS: Zinc Sulfate 220 MG CAP PO SCH (08:03)
[2020-02-22 09:53] LABS: Hemoglobin 11.2 g/dL (12.0-16.0); Mean Corpuscular HGB CONC 31.6 g/dL (32.0-36.0); Mean Corpuscular Volume 82.2 fL (78.0-98.0); Mean Platelet Volume 9.3 fL (7.4-10.4); Platelet Count 272 thou/uL (130-400); White Blood Cell (WBC) Count 10.8 thou/uL (4.8-10.8)
[2020-02-22 10:01] LABS: Anion Gap 14 mmol/L (10-20); BUN (Urea Nitrogen) 22 mg/dL (7.0-18.7); Calc. Creatinine Clearance 91 mL/min (70-130); Carbon Dioxide 25 mmol/L (22-29); Chloride 104 mmol/L (98-107); Glucose 318 mg/dL (70-105); Sodium 140 mmol/L (136-145)
[2020-02-22 10:02] LABS: Potassium 2.6 mmol/L (3.5-5.1)
[2020-02-22 10:03] LABS: ALT (SGPT) 33 U/L (8-55); AST (SGOT) 84 U/L (5-34); Albumin 2.7 g/dL (3.5-5.0); Alkaline Phosphatase 110 U/L (40-110); Bilirubin, Direct 0.2 mg/dL (0.1-0.3); Bilirubin, Total 0.5 mg/dL (0.2-1.2); CRP (Inflammatory) 9.94 mg/dL (= or < 0.5)
--- NOTE | 2020-02-22 10:44 | PRG ---
DATE OF SERVICE: 02/22/2020 SUBJECTIVE: The patient is feeling better. Had no acute complaints. OBJECTIVE: VITAL SIGNS: Temperature 96.7, pulse in the 90s, blood pressure last accurately measured 182/87, and O2 saturation is 100% on 5 L. HEENT: Unremarkable. NECK: No adenopathy or JVD. LUNGS: Few inspiratory crackles. CARDIAC: S1 and S2. Regular. ABDOMEN: Soft. EXTREMITIES: No edema. LABORATORY DATA: White blood cell count 10.8, hematocrit 35.3, and platelet count 272. Sodium 140, potassium 2.6, chloride 104, CO2 of 26, BUN 22, creatinine 0.8, and glucose 318. ASSESSMENT: The patient probably had COVID-19 pneumonia in the distant past. She is currently being treated by ID as if she has an acute infection. From my standpoint, she can be transferred to the telemetry floor and her oxygen can be weaned. Job ID: [id number]
[2020-02-22 11:03] LABS: Band 8 % (5-11); Eosinophils 1 % (0-10); Lymphocytes 8 % (21-51); MDiff Complete? YES; Monocytes 4 % (0-10); Neutrophil 79 % (42-75); RBC Morphology Normal
[2020-02-22] MEDS: Potassium Chloride 20 MEQ TAB PO SCH ×2 (11:47→16:31)
[2020-02-22] MEDS: Dexamethasone 4 mg/ml Vial SLOW IVP SCH (16:32)
--- NOTE | 2020-02-22 17:56 | PDOC.HOSPP ---
- Subjective Encounter Date: 02/22/20 Encounter Time: 07:30 Subjective: Patient seen for follow-up regarding pneumonia. She reports feeling better. She reports shortness of breath with exertion. - Objective Vital Signs & Weight: Vital Signs (12 hours) Temp Pulse BP Pulse Ox 02/22/20 16:35 98 175/75 H 02/22/20 16:00 97.6 F 02/22/20 12:00 97.4 F L 02/22/20 09:00 96.7 F L 02/22/20 08:00 98 99 Weight Weight 152 lb 5.431 oz Most Recent Monitor Data Heart Rate from ECG 84 NIBP 150/71 NIBP BP-Mean 97 Respiration from ECG 14 SpO2 95 I&O: 02/21/20 02/22/20 02/23/20 06:59 06:59 06:59 Intake Total 2700 4450 Output Total 1000 1300 Balance 1700 3150 Result Diagrams: 02/22/20 09:33 02/22/20 09:33 Additional Labs: Accuchecks 02/22/20 02/22/20 02/22/20 16:41 11:01 05:46 POC Glucose 336 H 318 H 302 H 02/21/20 19:57 POC Glucose 345 H I reviewed patient's labs and MAR EKG Reviewed by me: Yes (Normal sinus rhythm on telemetry) Hospitalist ROS - Review of Systems Constitutional: denies: fever, chills, sweats, weakness, malaise Respiratory: reports: cough, dry, SOB with excertion. denies: shortness of breath, hemoptysis, pleuritic pain, sputum, wheezing - Medication Medications: Active Medications Generic Name Dose Route Start Last Admin Trade Name Freq PRN Reason Stop Dose Admin Acetaminophen 650 mg 02/18/20 14:03 02/20/20 01:28 Acetaminophen 650 Mg/20.3 Ml Udcup PO 650 mg Q6H PRN Administration Headache/Fever or Pain Amlodipine Besylate 10 mg 02/22/20 09:00 02/22/20 08:00 Amlodipine 10 Mg Tab PO 10 mg DAILY MECCA Administration Ascorbic Acid 1,000 mg 02/20/20 09:00 02/22/20 08:00 Ascorbic Acid 500 Mg Chewable Tablet PO 1,000 mg DAILY MECCA Administration Aspirin 325 mg 02/18/20 09:00 02/22/20 08:01 Aspirin 325 Mg Enteric Coated Tablet PO 325 mg DAILY MECCA Administration Cholecalciferol 1,000 units 02/19/20 21:00 02/21/20 19:48 Cholecalciferol 1,000 Units (25 Mcg) Tab PO 1,000 units HS MECCA Administration Dexamethasone 6 mg 02/19/20 18:00 02/22/20 16:32 Dexamethasone 4 Mg/Ml Vial SLOW IVP 6 mg 1800 MECCA Administration Enalaprilat 2.5 mg 02/20/20 14:30 02/21/20 12:10 Enalaprilat Dihydrate 1.25 Mg/Ml Vial SLOW IVP 2.5 mg Q6H PRN Administration SBP Greater Than 170 Enoxaparin Sodium 40 mg 02/19/20 21:00 02/22/20 08:01 Enoxaparin Sodium 40 Mg/0.4 Ml Syringe SC 40 mg 0900,2100 MECCA Administration Famotidine 20 mg 02/18/20 09:00 02/22/20 08:00 Famotidine 20 Mg Tab PO 20 mg BID MECCA Administration Hydralazine HCl 5 mg 02/18/20 23:03 02/21/20 14:42 Hydralazine 20 Mg/Ml Vial SLOW IVP 5 mg Q4H PRN Administration SBP Greater Than 180 Hydralazine HCl 25 mg 02/21/20 21:00 02/22/20 16:31 Hydralazine 25 Mg Tab PO 25 mg QID MECCA Administration Sodium Chloride 1,000 mls @ 100 mls/hr 02/18/20 23:02 02/22/20 13:47 Normal Saline 0.9% IV 1,000 mls .Q10H MECCA Administration Remdesivir 100 mg/ Sodium 250 mls @ 250 mls/hr 02/20/20 23:00 02/21/20 22:01 Chloride IV 02/23/20 23:59 250 mls 2300 MECCA Administration Insulin Glargine 10 units/ 0.1 mls @ 0 mls/hr 02/22/20 09:00 02/22/20 08:01 Miscellaneous Medication SC 0.1 mls QAM MECCA Administration Insulin Human Lispro 0 units 02/17/20 22:33 02/22/20 16:37 Humalog 300 Units/3 Ml Vial SC 8 unit .MODERATE SLIDING SC PRN Administration Moderate Correctional Scale Labetalol HCl 10 mg 02/19/20 11:23 02/22/20 16:35 Labetalol Hcl 100 Mg/20 Ml Vial SLOW IVP 10 mg Q4H PRN Administration SBP Greater Than 170 Sodium Chloride 10 ml 02/18/20 09:00 02/22/20 08:03 Flush - Normal Saline 10 Ml Syringe IVF 10 ml Q12HR MECCA Administration Zinc Sulfate 220 mg 02/20/20 09:00 02/22/20 08:03 Zinc Sulfate 220 Mg Cap PO 220 mg DAILY MECCA Administration - Exam General Appearance: awake alert Eye: anicteric sclera ENT: normocephalic atraumatic Neck: supple Heart: RRR Respiratory: rhonchi Gastrointestinal: soft, normal bowel sounds Skin: no rashes Psychiatric: normal affect Hosp A/P (1) Pneumonia Code(s): J18.9 - PNEUMONIA, UNSPECIFIED ORGANISM Status: Acute (2) Sepsis Code(s): A41.9 - SEPSIS, UNSPECIFIED ORGANISM Status: Acute (3) Diabetes mellitus type 2 in nonobese Code(s): E11.9 - TYPE 2 DIABETES MELLITUS WITHOUT COMPLICATIONS Status: Chronic (4) Hypertension Code(s): I10 - ESSENTIAL (PRIMARY) HYPERTENSION Status: Chronic (5) Noncompliance with medication regimen Code(s): Z91.14 - PATIENT'S OTHER NONCOMPLIANCE WITH MEDICATION REGIMEN Status: Chronic - Plan Patient clinically improving. Patient is on dexamethasone and remdesivir for suspected COVID-19 associated pneumonia. Covid test negative but Covid antibody test positive. Blood sugars are high, increase Lantus insulin to 20 units daily. Continue vitamin C, zinc and vitamin D. Continue DVT prophylaxis with Lovenox 40 mg twice daily. Replace potassium
[2020-02-22] MEDS ORDERED: Insulin Glargine 10 UNITS in Pre-Filled Syringe 1 EACH SC SCH (18:00)
[2020-02-22] MEDS: Cholecalciferol 1,000 UNITS (25 MCG) TAB PO SCH (21:17)
[2020-02-22] MEDS: REMDESIVIR (EUA) 100 MG in Sodium Chloride 0.9% 250 ML 230 ML IV SCH (22:53)
[2020-02-23] MEDS: Acetaminophen 650 MG/20.3 ML UDCUP PO PRN ×2 (02:16→15:11)
[2020-02-23 05:13] LABS: ALT (SGPT) 72 U/L (8-55); AST (SGOT) 148 U/L (5-34); Albumin 2.4 g/dL (3.5-5.0); Alkaline Phosphatase 96 U/L (40-110); Bilirubin, Direct 0.2 mg/dL (0.1-0.3); Bilirubin, Total 0.3 mg/dL (0.2-1.2)
[2020-02-23] MEDS: HumaLOG 300 UNITS/3 ML VIAL SC PRN ×4 (06:30→21:37)
[2020-02-23] MEDS ORDERED: Insulin Glargine 20 UNITS in Pre-Filled Syringe 1 EACH SC SCH (09:00)
--- NOTE | 2020-02-23 10:49 | EKG ---
Test Reason : EMERGENCY EXAM Blood Pressure : / mmHG Vent. Rate : 121 BPM Atrial Rate : 122 BPM P-R Int : 000 ms QRS Dur : 080 ms QT Int : 428 ms P-R-T Axes : 000 009 011 degrees QTc Int : 607 ms Sinus tachycardia Voltage criteria for left ventricular hypertrophy Anteroseptal infarct , age undetermined Abnormal ECG Confirmed by KAYLA BARBOSA, ENEDELIA Stone ([id number]), slot editor STACY DRAKE ([id number]) on 02/23/2020 10:48:49 AM Referred By: Confirmed By:ENEDELIA GARZA MD
[2020-02-23] MEDS: Amlodipine 10 MG TAB PO SCH (11:16)
[2020-02-23] MEDS: Ascorbic Acid 500 mg Chewable Tablet PO SCH (11:17)
[2020-02-23] MEDS: Aspirin 325 mg Enteric Coated Tablet PO SCH (11:17)
[2020-02-23] MEDS: Enoxaparin Sodium 40 MG/0.4 ML SYRINGE SC SCH ×2 (11:17→21:14)
[2020-02-23] MEDS: hydrALAZINE 25 MG TAB PO SCH ×4 (11:18→21:15)
[2020-02-23] MEDS: Famotidine 20 MG TAB PO SCH ×2 (11:18→21:14)
[2020-02-23] MEDS: Zinc Sulfate 220 MG CAP PO SCH (11:19)
--- NOTE | 2020-02-23 11:51 | PDOC.HOSPP ---
- Subjective Encounter Date: 02/23/20 Encounter Time: 08:00 Subjective: Pt seen for followup re: pneumonia. Sleepy but arousable. - Objective Vital Signs & Weight: Vital Signs (12 hours) Temp Pulse Resp BP Pulse Ox 02/23/20 04:00 98.2 F 91 22 H 162/77 H 100 02/23/20 00:00 98 F 97 26 H 143/77 H 97 Weight Weight 152 lb 5.431 oz Most Recent Monitor Data Heart Rate from ECG 93 NIBP 151/95 NIBP BP-Mean 113 Respiration from ECG 28 SpO2 100 I&O: 02/22/20 02/23/20 02/24/20 06:59 06:59 06:59 Intake Total 4450 2780 490 Output Total 1300 1025 700 Balance 3150 1755 -210 Result Diagrams: 02/22/20 09:33 02/22/20 09:33 Additional Labs: Accuchecks 02/23/20 02/23/20 02/22/20 10:53 05:38 20:45 POC Glucose 231 H 333 H 397 H 02/22/20 16:41 POC Glucose 336 H Labs and MAR reviewed by me EKG Reviewed by me: Yes (Telemetry shows normal sinus rhythm) Hospitalist ROS - Review of Systems Constitutional: reports: weakness. denies: fever, chills, sweats, malaise Cardiovascular: denies: chest pain, palpitations, orthopnea, paroxysmal noc. dyspnea, edema, light headedness - Medication Medications: Active Medications Generic Name Dose Route Start Last Admin Trade Name Freq PRN Reason Stop Dose Admin Acetaminophen 650 mg 02/18/20 14:03 02/23/20 02:16 Acetaminophen 650 Mg/20.3 Ml Udcup PO 650 mg Q6H PRN Administration Headache/Fever or Pain Amlodipine Besylate 10 mg 02/22/20 09:00 02/23/20 11:16 Amlodipine 10 Mg Tab PO 10 mg DAILY MECCA Administration Ascorbic Acid 1,000 mg 02/20/20 09:00 02/23/20 11:17 Ascorbic Acid 500 Mg Chewable Tablet PO 1,000 mg DAILY MECCA Administration Aspirin 325 mg 02/18/20 09:00 02/23/20 11:17 Aspirin 325 Mg Enteric Coated Tablet PO 325 mg DAILY MECCA Administration Cholecalciferol 1,000 units 02/19/20 21:00 02/22/20 21:17 Cholecalciferol 1,000 Units (25 Mcg) Tab PO 1,000 units HS MECCA Administration Dexamethasone 6 mg 02/19/20 18:00 02/22/20 16:32 Dexamethasone 4 Mg/Ml Vial SLOW IVP 6 mg 1800 MECCA Administration Enalaprilat 2.5 mg 02/20/20 14:30 02/21/20 12:10 Enalaprilat Dihydrate 1.25 Mg/Ml Vial SLOW IVP 2.5 mg Q6H PRN Administration SBP Greater Than 170 Enoxaparin Sodium 40 mg 02/19/20 21:00 02/23/20 11:17 Enoxaparin Sodium 40 Mg/0.4 Ml Syringe SC 40 mg 0900,2100 MECCA Administration Famotidine 20 mg 02/18/20 09:00 02/23/20 11:18 Famotidine 20 Mg Tab PO 20 mg BID MECCA Administration Hydralazine HCl 5 mg 02/18/20 23:03 02/21/20 14:42 Hydralazine 20 Mg/Ml Vial SLOW IVP 5 mg Q4H PRN Administration SBP Greater Than 180 Hydralazine HCl 25 mg 02/21/20 21:00 02/23/20 11:18 Hydralazine 25 Mg Tab PO 25 mg QID MECCA Administration Remdesivir 100 mg/ Sodium 250 mls @ 250 mls/hr 02/20/20 23:00 02/22/20 22:53 Chloride IV 02/23/20 23:59 250 mls 2300 MECCA Administration Insulin Glargine 20 units/ 0.2 mls @ 0 mls/hr 02/23/20 09:00 02/23/20 11:15 Miscellaneous Medication SC 0.2 mls QAM MECCA Administration Insulin Human Lispro 0 units 02/17/20 22:33 02/23/20 11:13 Humalog 300 Units/3 Ml Vial SC 4 unit .MODERATE SLIDING SC PRN Administration Moderate Correctional Scale Labetalol HCl 10 mg 02/19/20 11:23 02/22/20 16:35 Labetalol Hcl 100 Mg/20 Ml Vial SLOW IVP 10 mg Q4H PRN Administration SBP Greater Than 170 Sodium Chloride 10 ml 02/18/20 09:00 02/23/20 11:19 Flush - Normal Saline 10 Ml Syringe IVF 10 ml Q12HR MECCA Administration Zinc Sulfate 220 mg 02/20/20 09:00 02/23/20 11:19 Zinc Sulfate 220 Mg Cap PO 220 mg DAILY MECCA Administration - Exam General Appearance: awake alert Eye: anicteric sclera ENT: normocephalic atraumatic Neck: supple Heart: normal peripheral pulses Respiratory: CTAB Gastrointestinal: soft, non-tender Skin: no rashes Psychiatric: normal affect, normal behavior Hosp A/P (1) Pneumonia Code(s): J18.9 - PNEUMONIA, UNSPECIFIED ORGANISM Status: Acute (2) Sepsis Code(s): A41.9 - SEPSIS, UNSPECIFIED ORGANISM Status: Acute (3) Diabetes mellitus type 2 in nonobese Code(s): E11.9 - TYPE 2 DIABETES MELLITUS WITHOUT COMPLICATIONS Status: Chronic (4) Hypertension Code(s): I10 - ESSENTIAL (PRIMARY) HYPERTENSION Status: Chronic (5) Noncompliance with medication regimen Code(s): Z91.14 - PATIENT'S OTHER NONCOMPLIANCE WITH MEDICATION REGIMEN Status: Chronic - Plan Patient clinically improving. Patient is on dexamethasone. Last dose of remdesivir yesterday. Covid test negative but Covid antibody test positive. Blood sugars are high, increase Lantus insulin to 20 units daily. Continue vitamin C, zinc and vitamin D. Continue DVT prophylaxis with Lovenox 40 mg twice daily. Replace potassium
[2020-02-23] MEDS ORDERED: Insulin Glargine 10 UNITS in Pre-Filled Syringe SC SCH (12:30)
[2020-02-23] MEDS: Insulin Glargine 10 UNITS in Pre-Filled Syringe SC SCH (15:12)
[2020-02-23] MEDS: Dexamethasone 4 mg/ml Vial SLOW IVP SCH (18:17)
[2020-02-23] MEDS: Cholecalciferol 1,000 UNITS (25 MCG) TAB PO SCH (21:14)
[2020-02-23] MEDS: REMDESIVIR (EUA) 100 MG in Sodium Chloride 0.9% 250 ML 230 ML IV SCH (23:32)
[2020-02-24] MEDS: Labetalol HCl 100 MG/20 ML VIAL SLOW IVP PRN (04:18)
[2020-02-24] MEDS: Acetaminophen 650 MG/20.3 ML UDCUP PO PRN (04:24)
[2020-02-24] MEDS: HumaLOG 300 UNITS/3 ML VIAL SC PRN ×3 (06:14→16:57)
[2020-02-24] MEDS ORDERED: Insulin Glargine 30 UNITS in Pre-Filled Syringe SC SCH (09:00)
[2020-02-24] MEDS: Amlodipine 10 MG TAB PO SCH (11:04)
[2020-02-24] MEDS: Ascorbic Acid 500 mg Chewable Tablet PO SCH (11:04)
[2020-02-24] MEDS: Famotidine 20 MG TAB PO SCH ×2 (11:05→21:31)
[2020-02-24] MEDS: cloNIDine 0.1 MG TAB PO SCH ×2 (11:05→21:32)
[2020-02-24] MEDS: Aspirin 325 mg Enteric Coated Tablet PO SCH (11:05)
[2020-02-24] MEDS: Enoxaparin Sodium 40 MG/0.4 ML SYRINGE SC SCH ×2 (11:05→21:31)
[2020-02-24] MEDS: hydrALAZINE 25 MG TAB PO SCH ×3 (11:06→21:31)
[2020-02-24] MEDS: Zinc Sulfate 220 MG CAP PO SCH (11:06)
--- NOTE | 2020-02-24 12:30 | PDOC.HOSPP ---
- Subjective Encounter Date: 02/24/20 Encounter Time: 08:00 Subjective: Pt seen for followup for pneumonia. Denies chest pain or shortness of breath. - Objective Vital Signs & Weight: Vital Signs (12 hours) Temp Pulse Resp BP BP Pulse Ox 02/24/20 10:57 97.2 F L 93 18 195/81 H 93 L 02/24/20 05:52 187/79 H 02/24/20 04:18 90 182/80 H 02/24/20 03:23 98.4 F 86 15 182/80 H 98 Weight Weight 152 lb 5.431 oz Most Recent Monitor Data Heart Rate from ECG 93 NIBP 151/95 NIBP BP-Mean 113 Respiration from ECG 28 SpO2 100 I&O: 02/23/20 02/24/20 02/25/20 06:59 06:59 06:59 Intake Total 2780 970 Output Total 1025 1825 Balance 2195 -935 Result Diagrams: 02/22/20 09:33 02/22/20 09:33 Additional Labs: Accuchecks 02/24/20 02/24/20 02/23/20 10:32 06:16 21:20 POC Glucose 271 H 339 H 323 H 02/23/20 16:56 POC Glucose 345 H I reviewed labs and MAR EKG Reviewed by me: Yes (Tele: NSR) Hospitalist ROS - Review of Systems Respiratory: denies: cough, dry, shortness of breath, hemoptysis, SOB with excertion, pleuritic pain, sputum, wheezing Cardiovascular: denies: chest pain, palpitations, orthopnea, paroxysmal noc. dyspnea, edema, light headedness - Medication Medications: Active Medications Generic Name Dose Route Start Last Admin Trade Name Freq PRN Reason Stop Dose Admin Acetaminophen 650 mg 02/18/20 14:03 02/24/20 04:24 Acetaminophen 650 Mg/20.3 Ml Udcup PO 650 mg Q6H PRN Administration Headache/Fever or Pain Amlodipine Besylate 10 mg 02/22/20 09:00 02/24/20 11:04 Amlodipine 10 Mg Tab PO 10 mg DAILY MECCA Administration Ascorbic Acid 1,000 mg 02/20/20 09:00 02/24/20 11:04 Ascorbic Acid 500 Mg Chewable Tablet PO 1,000 mg DAILY MECCA Administration Aspirin 325 mg 02/18/20 09:00 02/24/20 11:05 Aspirin 325 Mg Enteric Coated Tablet PO 325 mg DAILY MECCA Administration Cholecalciferol 1,000 units 02/19/20 21:00 02/23/20 21:14 Cholecalciferol 1,000 Units (25 Mcg) Tab PO 1,000 units HS MECCA Administration Clonidine 0.1 mg 02/24/20 09:00 02/24/20 11:05 Clonidine 0.1 Mg Tab PO 0.1 mg BID MECCA Administration Enalaprilat 2.5 mg 02/20/20 14:30 02/21/20 12:10 Enalaprilat Dihydrate 1.25 Mg/Ml Vial SLOW IVP 2.5 mg Q6H PRN Administration SBP Greater Than 170 Enoxaparin Sodium 40 mg 02/19/20 21:00 02/24/20 11:05 Enoxaparin Sodium 40 Mg/0.4 Ml Syringe SC 40 mg 0900,2100 MECCA Administration Famotidine 20 mg 02/18/20 09:00 02/24/20 11:05 Famotidine 20 Mg Tab PO 20 mg BID MECCA Administration Hydralazine HCl 5 mg 02/18/20 23:03 02/21/20 14:42 Hydralazine 20 Mg/Ml Vial SLOW IVP 5 mg Q4H PRN Administration SBP Greater Than 180 Hydralazine HCl 75 mg 02/24/20 09:00 02/24/20 11:06 Hydralazine 25 Mg Tab PO 75 mg TID MECCA Administration Insulin Glargine 30 units/ 0.3 mls @ 0 mls/hr 02/24/20 09:00 02/24/20 10:55 Miscellaneous Medication SC 0.3 mls QAM MECCA Administration Insulin Human Lispro 0 units 02/17/20 22:33 02/24/20 10:53 Humalog 300 Units/3 Ml Vial SC 6 unit .MODERATE SLIDING SC PRN Administration Moderate Correctional Scale Labetalol HCl 10 mg 02/19/20 11:23 02/24/20 04:18 Labetalol Hcl 100 Mg/20 Ml Vial SLOW IVP 10 mg Q4H PRN Administration SBP Greater Than 170 Sodium Chloride 10 ml 02/18/20 09:00 02/24/20 11:07 Flush - Normal Saline 10 Ml Syringe IVF Not Given Q12HR [facility] Sodium Chloride 10 ml 02/18/20 09:00 02/24/20 04:20 Flush - Normal Saline 10 Ml Syringe IVF 10 ml PRN PRN Administration Saline Flush Zinc Sulfate 220 mg 02/20/20 09:00 02/24/20 11:06 Zinc Sulfate 220 Mg Cap PO 220 mg DAILY MECCA Administration - Exam General Appearance: awake alert Eye: anicteric sclera Neck: supple Heart: RRR Respiratory: CTAB Gastrointestinal: soft, non-tender Extremities: no clubbing Musculoskeletal: no muscle wasting Psychiatric: normal affect Hosp A/P (1) Pneumonia Code(s): J18.9 - PNEUMONIA, UNSPECIFIED ORGANISM Status: Acute (2) Sepsis Code(s): A41.9 - SEPSIS, UNSPECIFIED ORGANISM Status: Acute (3) Diabetes mellitus type 2 in nonobese Code(s): E11.9 - TYPE 2 DIABETES MELLITUS WITHOUT COMPLICATIONS Status: [facility] (4) Hypertension Code(s): I10 - ESSENTIAL (PRIMARY) HYPERTENSION Status: Chronic (5) Noncompliance with medication regimen Code(s): Z91.14 - PATIENT'S OTHER NONCOMPLIANCE WITH MEDICATION REGIMEN Status: Chronic - Plan Patient improved. Continue dexamethasone. Last dose of remdesivir yesterday. Covid test negative but Covid antibody test positive. Blood sugars are high, increase Lantus insulin to 40 units daily. Continue vitamin C, zinc and vitamin D. Continue DVT prophylaxis with Lovenox 40 mg twice daily.
[2020-02-24] MEDS ORDERED: Insulin Glargine 10 UNITS in Pre-Filled Syringe SC SCH (13:00)
--- NOTE | 2020-02-24 15:26 | PRG ---
DATE OF SERVICE: 02/24/2020 SUBJECTIVE: Much better, transferred back from [facility] to the floor. She has a little bit of abdominal cramps, less dyspnea. On arrival in the room, she had removed her O2 supplementation, was saturating at 91% with O2 on 5 L she went up to 96% to 97%. OBJECTIVE: LUNGS: With scattered inspiratory crackles, mild. HEART: S1 and S2, regular rate. ABDOMEN: Soft, not distended. EXTREMITIES: Moves all extremities equally. LABORATORY DATA: White cell count is at 10.8, hemoglobin 11, platelets 272. Creatinine 0.81. She already finished her remdesivir. She is on Decadron still. ASSESSMENT AND DISCUSSION: Severe SARS-CoV infection with rapid improvement, type 2 diabetes, and hypertension. She will be able to go home soon. Job ID: [id number]
[2020-02-24] MEDS: Dexamethasone 4 MG TAB PO SCH (16:55)
[2020-02-24] MEDS: Cholecalciferol 1,000 UNITS (25 MCG) TAB PO SCH (21:31)
[2020-02-25 05:05] LABS: ALT (SGPT) 48 U/L (8-55); AST (SGOT) 31 U/L (5-34); Albumin 2.4 g/dL (3.5-5.0); Alkaline Phosphatase 100 U/L (40-110); Bilirubin, Direct 0.1 mg/dL (0.1-0.3); Bilirubin, Total 0.2 mg/dL (0.2-1.2); CRP (Inflammatory) 2.59 mg/dL (= or < 0.5)
[2020-02-25 05:07] LABS: ALT (SGPT) 48 U/L (8-55); AST (SGOT) 30 U/L (5-34); Albumin 2.3 g/dL (3.5-5.0); Alkaline Phosphatase 101 U/L (40-110); Anion Gap 13 mmol/L (10-20); BUN (Urea Nitrogen) 19 mg/dL (7.0-18.7); Bilirubin, Total 0.2 mg/dL (0.2-1.2); Calc. Creatinine Clearance 84 mL/min (70-130); Calcium 7.7 mg/dL (7.8-10.44); Carbon Dioxide 28 mmol/L (22-29); Chloride 99 mmol/L (98-107); Globulin 2.7 g/dL (2.4-3.5); Glucose 327 mg/dL (70-105); Potassium 3.2 mmol/L (3.5-5.1); Sodium 137 mmol/L (136-145)
[2020-02-25] MEDS: HumaLOG 300 UNITS/3 ML VIAL SC PRN ×3 (05:17→17:53)
[2020-02-25 05:19] LABS: Band 6 % (5-11); Hemoglobin 11.1 g/dL (12.0-16.0); Lymphocytes 14 % (21-51); MDiff Complete? YES; Mean Corpuscular HGB CONC 30.7 g/dL (32.0-36.0); Mean Corpuscular Hemoglobin 25.1 pg (27.0-31.0); Mean Corpuscular Volume 81.8 fL (78.0-98.0); Mean Platelet Volume 9.5 fL (7.4-10.4); Metamyelocyte 1 % (0-0); Monocytes 8 % (0-10); Myelocyte 1 % (0-0); Neutrophil 70 % (42-75); Platelet Count 268 thou/uL (130-400); RBC Distribution Width 13.3 % (11.5-14.5); Red Blood Cell (RBC) Count 4.44 mill/uL (4.20-5.40); White Blood Cell (WBC) Count 8.1 thou/uL (4.8-10.8)
--- NOTE | 2020-02-25 07:24 | PDOC.HOSPP ---
- Subjective Encounter Date: 02/25/20 Encounter Time: 09:00 Subjective: Patient feeling a bit weak. Asking when she can go home. Doesn't seem to completely understand her situation. Reportedly desated significantly just rolling in bed earlier. Has not been up out of bed at all per nurse. - Objective Vital Signs & Weight: Vital Signs (12 hours) Temp Pulse Resp BP Pulse Ox 02/25/20 03:40 79 100 02/24/20 23:36 97.7 F 86 22 H 132/61 98 02/24/20 21:15 98.5 F 93 25 H 174/77 H 93 L Weight Weight 152 lb 5.431 oz Most Recent Monitor Data Heart Rate from ECG 93 NIBP 151/95 NIBP BP-Mean 113 Respiration from ECG 28 SpO2 100 I&O: 02/24/20 02/25/20 02/26/20 06:59 06:59 06:59 Intake Total 970 300 Output Total 1825 650 Balance -855 -350 Result Diagrams: 02/25/20 04:19 02/25/20 04:19 Additional Labs: Accuchecks 02/24/20 02/24/20 02/24/20 21:17 16:37 10:32 POC Glucose 183 H 227 H 271 H Hospitalist ROS - Review of Systems Constitutional: reports: weakness. denies: fever, chills Respiratory: denies: cough, shortness of breath Cardiovascular: denies: chest pain, palpitations Gastrointestinal: denies: nausea, vomiting, abdominal pain - Medication Medications: Active Medications Generic Name Dose Route Start Last Admin Trade Name Freq PRN Reason Stop Dose Admin Acetaminophen 650 mg 02/18/20 14:03 02/24/20 04:24 Acetaminophen 650 Mg/20.3 Ml Udcup PO 650 mg Q6H PRN Administration Headache/Fever or Pain Amlodipine Besylate 10 mg 02/22/20 09:00 02/24/20 11:04 Amlodipine 10 Mg Tab PO 10 mg DAILY MECCA Administration Ascorbic Acid 1,000 mg 02/20/20 09:00 02/24/20 11:04 Ascorbic Acid 500 Mg Chewable Tablet PO 1,000 mg DAILY MECCA Administration Aspirin 325 mg 02/18/20 09:00 02/24/20 11:05 Aspirin 325 Mg Enteric Coated Tablet PO 325 mg DAILY MECCA Administration Cholecalciferol 1,000 units 02/19/20 21:00 02/24/20 21:31 Cholecalciferol 1,000 Units (25 Mcg) Tab PO 1,000 units HS MECCA Administration Clonidine 0.1 mg 02/24/20 09:00 02/24/20 21:32 Clonidine 0.1 Mg Tab PO 0.1 mg BID MECCA Administration Dexamethasone 6 mg 02/24/20 18:00 02/24/20 16:55 Dexamethasone 4 Mg Tab PO 6 mg 1800 MECCA Administration Enalaprilat 2.5 mg 02/20/20 14:30 02/21/20 12:10 Enalaprilat Dihydrate 1.25 Mg/Ml Vial SLOW IVP 2.5 mg Q6H PRN Administration SBP Greater Than 170 Enoxaparin Sodium 40 mg 02/19/20 21:00 02/24/20 21:31 Enoxaparin Sodium 40 Mg/0.4 Ml Syringe SC 40 mg 0900,2100 MECCA Administration Famotidine 20 mg 02/18/20 09:00 02/24/20 21:31 Famotidine 20 Mg Tab PO 20 mg BID MECCA Administration Hydralazine HCl 5 mg 02/18/20 23:03 02/21/20 14:42 Hydralazine 20 Mg/Ml Vial SLOW IVP 5 mg Q4H PRN Administration SBP Greater Than 180 Hydralazine HCl 75 mg 02/24/20 09:00 02/24/20 21:31 Hydralazine 25 Mg Tab PO 75 mg TID MECCA Administration Insulin Human Lispro 0 units 02/17/20 22:33 02/25/20 05:17 Humalog 300 Units/3 Ml Vial SC 8 unit .MODERATE SLIDING SC PRN Administration Moderate Correctional Scale Labetalol HCl 10 mg 02/19/20 11:23 02/24/20 04:18 Labetalol Hcl 100 Mg/20 Ml Vial SLOW IVP 10 mg Q4H PRN Administration SBP Greater Than 170 Sodium Chloride 10 ml 02/18/20 09:00 02/24/20 21:32 Flush - Normal Saline 10 Ml Syringe IVF Not Given Q12HR MECCA Sodium Chloride 10 ml 02/18/20 09:00 02/24/20 04:20 Flush - Normal Saline 10 Ml Syringe IVF 10 ml PRN PRN Administration Saline Flush Zinc Sulfate 220 mg 02/20/20 09:00 12/20/20 11:06 Zinc Sulfate 220 Mg Cap PO 220 mg DAILY MECCA Administration - Exam General Appearance: NAD, awake alert ENT: moist mucosa Heart: RRR, no murmur, no gallops, no rubs Respiratory: CTAB, no wheezes, no rales, no ronchi Gastrointestinal: soft, non-tender, non-distended, normal bowel sounds Extremities: no edema Psychiatric: normal affect, normal behavior Hosp A/P - Plan (1) Pneumonia Code(s): J18.9 - PNEUMONIA, UNSPECIFIED ORGANISM Status: Acute (2) Sepsis Code(s): A41.9 - SEPSIS, UNSPECIFIED ORGANISM Status: Acute (3) Diabetes mellitus type 2 in nonobese Code(s): E11.9 - TYPE 2 DIABETES MELLITUS WITHOUT COMPLICATIONS Status: Chronic (4) Hypertension Code(s): I10 - ESSENTIAL (PRIMARY) HYPERTENSION Status: Chronic (5) Noncompliance with medication regimen Code(s): Z91.14 - PATIENT'S OTHER NONCOMPLIANCE WITH MEDICATION REGIMEN Status: Chronic - Plan Patient improved. Continue dexamethasone. Last dose of remdesivir yesterday. Covid test negative but Covid antibody test positive. Dr. Vela thinks the pneumonia is Covid related. Blood sugars are high on the dexamethasone, increased Lantus insulin to 40 units daily. Continue vitamin C, zinc and vitamin D. Continue DVT prophylaxis with Lovenox 40 mg twice daily. Will need PT to start ambulating the patient. May need rehab.
[2020-02-25] MEDS ORDERED: Potassium Chloride 20 MEQ TAB PO SCH (07:30)
[2020-02-25] MEDS ORDERED: Insulin Glargine 40 UNITS in Pre-Filled Syringe SC SCH (09:00)
[2020-02-25] MEDS: Amlodipine 10 MG TAB PO SCH (09:12)
[2020-02-25] MEDS: Enoxaparin Sodium 40 MG/0.4 ML SYRINGE SC SCH ×2 (09:13→21:31)
[2020-02-25] MEDS: cloNIDine 0.1 MG TAB PO SCH ×2 (09:13→21:31)
[2020-02-25] MEDS: Ascorbic Acid 500 mg Chewable Tablet PO SCH (09:13)
[2020-02-25] MEDS: Aspirin 325 mg Enteric Coated Tablet PO SCH (09:13)
[2020-02-25] MEDS: Zinc Sulfate 220 MG CAP PO SCH (09:14)
[2020-02-25] MEDS: hydrALAZINE 25 MG TAB PO SCH ×3 (09:14→21:31)
[2020-02-25] MEDS: Famotidine 20 MG TAB PO SCH ×2 (09:14→21:31)
[2020-02-25] MEDS: Acetaminophen 650 MG/20.3 ML UDCUP PO PRN (16:22)
[2020-02-25] MEDS: Dexamethasone 4 MG TAB PO SCH (17:53)
[2020-02-25] MEDS: Cholecalciferol 1,000 UNITS (25 MCG) TAB PO SCH (21:31)
[2020-02-26 04:50] LABS: Anion Gap 13 mmol/L (10-20); BUN (Urea Nitrogen) 19 mg/dL (7.0-18.7); Calc. Creatinine Clearance 95 mL/min (70-130); Calcium 7.6 mg/dL (7.8-10.44); Carbon Dioxide 28 mmol/L (22-29); Chloride 98 mmol/L (98-107); Glucose 273 mg/dL (70-105); Potassium 3.8 mmol/L (3.5-5.1); Sodium 135 mmol/L (136-145)
[2020-02-26] MEDS: HumaLOG 300 UNITS/3 ML VIAL SC PRN ×3 (05:59→17:50)
--- NOTE | 2020-02-26 07:25 | PDOC.HOSPP ---
- Subjective Encounter Date: 02/26/20 Encounter Time: 08:45 Subjective: Patient without complaints. Wants to go home but is very weak. Still on oxygen. - Objective Vital Signs & Weight: Vital Signs (12 hours) Temp Pulse Resp BP Pulse Ox 02/26/20 02:55 98.1 F 84 18 131/67 96 02/25/20 23:45 98.5 F 83 15 131/84 98 02/25/20 19:47 97.6 F 83 19 162/82 H 100 Weight Weight 152 lb 5.431 oz Most Recent Monitor Data Heart Rate from ECG 93 NIBP 151/95 NIBP BP-Mean 113 Respiration from ECG 28 SpO2 100 I&O: 02/25/20 02/26/20 02/27/20 06:59 06:59 06:59 Intake Total 300 1040 Output Total 650 2450 Balance -350 -1410 Result Diagrams: 02/25/20 04:19 02/26/20 04:17 Additional Labs: Accuchecks 02/25/20 02/25/20 02/25/20 20:57 16:36 10:51 POC Glucose 212 H 238 H 286 H Hospitalist ROS - Review of Systems Constitutional: reports: weakness. denies: fever, chills Respiratory: denies: cough, shortness of breath Cardiovascular: denies: chest pain, palpitations Gastrointestinal: denies: nausea, vomiting, abdominal pain - Medication Medications: Active Medications Generic Name Dose Route Start Last Admin Trade Name Freq PRN Reason Stop Dose Admin Acetaminophen 650 mg 02/18/20 14:03 02/25/20 16:22 Acetaminophen 650 Mg/20.3 Ml Udcup PO 650 mg Q6H PRN Administration Headache/Fever or Pain Amlodipine Besylate 10 mg 02/22/20 09:00 02/25/20 09:12 Amlodipine 10 Mg Tab PO 10 mg DAILY MECCA Administration Ascorbic Acid 1,000 mg 02/20/20 09:00 02/25/20 09:13 Ascorbic Acid 500 Mg Chewable Tablet PO 1,000 mg DAILY MECCA Administration Aspirin 325 mg 02/18/20 09:00 02/25/20 09:13 Aspirin 325 Mg Enteric Coated Tablet PO 325 mg DAILY MECCA Administration Cholecalciferol 1,000 units 02/19/20 21:00 02/25/20 21:31 Cholecalciferol 1,000 Units (25 Mcg) Tab PO 1,000 units HS MECCA Administration Clonidine 0.1 mg 02/24/20 09:00 02/25/20 21:31 Clonidine 0.1 Mg Tab PO 0.1 mg BID MECCA Administration Dexamethasone 6 mg 02/24/20 18:00 02/25/20 17:53 Dexamethasone 4 Mg Tab PO 6 mg 1800 MECCA Administration Enalaprilat 2.5 mg 02/20/20 14:30 02/21/20 12:10 Enalaprilat Dihydrate 1.25 Mg/Ml Vial SLOW IVP 2.5 mg Q6H PRN Administration SBP Greater Than 170 Enoxaparin Sodium 40 mg 02/19/20 21:00 02/25/20 21:31 Enoxaparin Sodium 40 Mg/0.4 Ml Syringe SC 40 mg 0900,2100 MECCA Administration Famotidine 20 mg 02/18/20 09:00 02/25/20 21:31 Famotidine 20 Mg Tab PO 20 mg BID MECCA Administration Hydralazine HCl 5 mg 02/18/20 23:03 02/21/20 14:42 Hydralazine 20 Mg/Ml Vial SLOW IVP 5 mg Q4H PRN Administration SBP Greater Than 180 Hydralazine HCl 75 mg 02/24/20 09:00 02/25/20 21:31 Hydralazine 25 Mg Tab PO 75 mg TID MECCA Administration Insulin Human Lispro 0 units 02/17/20 22:33 02/26/20 05:59 Humalog 300 Units/3 Ml Vial SC 6 unit .MODERATE SLIDING SC PRN Administration Moderate Correctional Scale Labetalol HCl 10 mg 02/19/20 11:23 02/24/20 04:18 Labetalol Hcl 100 Mg/20 Ml Vial SLOW IVP 10 mg Q4H PRN Administration SBP Greater Than 170 Sodium Chloride 10 ml 02/18/20 09:00 02/25/20 21:32 Flush - Normal Saline 10 Ml Syringe IVF Not Given Q12HR MECCA Sodium Chloride 10 ml 02/18/20 09:00 02/24/20 04:20 Flush - Normal Saline 10 Ml Syringe IVF 10 ml PRN PRN Administration Saline Flush Zinc Sulfate 220 mg 02/20/20 09:00 02/25/20 09:14 Zinc Sulfate 220 Mg Cap PO 220 mg DAILY MECCA Administration - Exam General Appearance: NAD, awake alert ENT: moist mucosa Heart: RRR, no murmur, no gallops, no rubs Respiratory: CTAB, no wheezes, no rales, no ronchi Gastrointestinal: soft, non-tender, non-distended, normal bowel sounds Psychiatric: normal affect, normal behavior Hosp A/P - Plan (1) Pneumonia Code(s): J18.9 - PNEUMONIA, UNSPECIFIED ORGANISM Status: Acute (2) Sepsis Code(s): A41.9 - SEPSIS, UNSPECIFIED ORGANISM Status: Acute (3) Diabetes mellitus type 2 in nonobese Code(s): E11.9 - TYPE 2 DIABETES MELLITUS WITHOUT COMPLICATIONS Status: Chronic (4) Hypertension Code(s): I10 - ESSENTIAL (PRIMARY) HYPERTENSION Status: Chronic (5) Noncompliance with medication regimen Code(s): Z91.14 - PATIENT'S OTHER NONCOMPLIANCE WITH MEDICATION REGIMEN Status: Chronic - Plan Patient improved. Continue dexamethasone, day 9/10. Completed remdesivir. Covid test negative but Covid antibody test positive. Dr. Vela thinks the pneumonia is Covid related. Blood sugars are still high on the dexamethasone, increase Lantus insulin to 50 units daily. Can decrease back down when off steroids. Continue vitamin C, zinc and vitamin D. Continue DVT prophylaxis with Lovenox 40 mg twice daily. Will need PT to start ambulating the patient. May need rehab. Will call to update mother once I get her contact info.
[2020-02-26] MEDS: cloNIDine 0.1 MG TAB PO SCH ×2 (08:20→19:55)
[2020-02-26] MEDS: hydrALAZINE 25 MG TAB PO SCH ×3 (08:20→19:54)
[2020-02-26] MEDS: Aspirin 325 mg Enteric Coated Tablet PO SCH (08:20)
[2020-02-26] MEDS: Lisinopril 20 MG TAB PO SCH (08:21)
[2020-02-26] MEDS: Insulin Glargine 50 UNITS in Pre-Filled Syringe 1 EACH SC SCH (08:21)
[2020-02-26] MEDS: Ascorbic Acid 500 mg Chewable Tablet PO SCH (08:21)
[2020-02-26] MEDS: Zinc Sulfate 220 MG CAP PO SCH (08:21)
[2020-02-26] MEDS: Amlodipine 10 MG TAB PO SCH (08:21)
[2020-02-26] MEDS: Famotidine 20 MG TAB PO SCH ×2 (08:21→19:55)
[2020-02-26] MEDS: Enoxaparin Sodium 40 MG/0.4 ML SYRINGE SC SCH ×2 (08:22→19:54)
[2020-02-26] MEDS: Dexamethasone 4 MG TAB PO SCH (17:49)
[2020-02-26] MEDS: Cholecalciferol 1,000 UNITS (25 MCG) TAB PO SCH (19:55)
[2020-02-26] MEDS ORDERED: HumaLOG 300 UNITS/3 ML VIAL SC PRN (21:55)
[2020-02-27] MEDS: HumaLOG 300 UNITS/3 ML VIAL SC PRN ×3 (06:08→16:12)
--- NOTE | 2020-02-27 06:25 | PDOC.HOSPP ---
- Subjective Encounter Date: 02/27/20 Subjective: Patient seen and examined this morning at bedside. Possible Covid with negative PCR but positive AB status post remdesivir and day #9 of dexamethasone based on review of EHR. No acute distress noted. She is a poor historian and offers little details about her hospital course. Tells me that she lives at home with her brother and they do get assistance from her mother. Denies any overnight events or acute complaints. She is breathing comfortably on room air. Denies any cough, fever, chills, malaise. Does admit to some generalized weakness. - Objective Vital Signs & Weight: Vital Signs (12 hours) Temp Pulse Resp BP Pulse Ox 02/27/20 04:29 97.9 F 88 20 158/77 H 95 02/27/20 00:16 78 18 02/26/20 19:55 98 02/26/20 19:54 95 02/26/20 18:50 97.8 F 95 22 H 136/74 98 Weight Weight 152 lb 5.431 oz Most Recent Monitor Data Heart Rate from ECG 93 NIBP 151/95 NIBP BP-Mean 113 Respiration from ECG 28 SpO2 100 I&O: 02/25/20 02/26/20 02/27/20 06:59 06:59 06:59 Intake Total 300 1040 1440 Output Total 650 2450 1400 Balance -350 -1410 40 Result Diagrams: 02/25/20 04:19 02/26/20 04:17 Additional Labs: Accuchecks 02/27/20 02/26/20 02/26/20 06:05 19:59 16:38 POC Glucose 190 H 270 H 266 H 02/26/20 12:12 POC Glucose 212 H Hospitalist ROS - Review of Systems ROS unobtainable: due to mental status Constitutional: reports: weakness (Admits to generalized weakness otherwise poor historian) Respiratory: denies: cough, dry, shortness of breath, hemoptysis, SOB with excertion, pleuritic pain, sputum, wheezing, other Cardiovascular: denies: chest pain, palpitations, orthopnea, paroxysmal noc. dyspnea, edema, light headedness, other Gastrointestinal: denies: nausea, vomiting, abdominal pain, diarrhea, constipation, melena, hematochezia, other Genitourinary: denies: dysuria, frequency, incontinence, hematuria, retention, other - Medication Medications: Active Medications Generic Name Dose Route Start Last Admin Trade Name Freq PRN Reason Stop Dose Admin Acetaminophen 650 mg 02/18/20 14:03 02/25/20 16:22 Acetaminophen 650 Mg/20.3 Ml Udcup PO 650 mg Q6H PRN Administration Headache/Fever or Pain Amlodipine Besylate 10 mg 02/22/20 09:00 02/26/20 08:21 Amlodipine 10 Mg Tab PO 10 mg DAILY MECCA Administration Ascorbic Acid 1,000 mg 02/20/20 09:00 02/26/20 08:21 Ascorbic Acid 500 Mg Chewable Tablet PO 1,000 mg DAILY MECCA Administration Aspirin 325 mg 02/18/20 09:00 02/26/20 08:20 Aspirin 325 Mg Enteric Coated Tablet PO 325 mg DAILY MECCA Administration Cholecalciferol 1,000 units 02/19/20 21:00 02/26/20 19:55 Cholecalciferol 1,000 Units (25 Mcg) Tab PO 1,000 units HS MECCA Administration Clonidine 0.1 mg 02/24/20 09:00 02/26/20 19:55 Clonidine 0.1 Mg Tab PO 0.1 mg BID MECCA Administration Dexamethasone 6 mg 02/24/20 18:00 02/26/20 17:49 Dexamethasone 4 Mg Tab PO 6 mg 1800 MECCA Administration Enalaprilat 2.5 mg 02/20/20 14:30 02/21/20 12:10 Enalaprilat Dihydrate 1.25 Mg/Ml Vial SLOW IVP 2.5 mg Q6H PRN Administration SBP Greater Than 170 Enoxaparin Sodium 40 mg 02/19/20 21:00 02/26/20 19:54 Enoxaparin Sodium 40 Mg/0.4 Ml Syringe SC 40 mg 0900,2100 MECCA Administration Famotidine 20 mg 02/18/20 09:00 02/26/20 19:55 Famotidine 20 Mg Tab PO 20 mg BID MECCA Administration Hydralazine HCl 5 mg 02/18/20 23:03 02/21/20 14:42 Hydralazine 20 Mg/Ml Vial SLOW IVP 5 mg Q4H PRN Administration SBP Greater Than 180 Hydralazine HCl 75 mg 02/24/20 09:00 02/26/20 19:54 Hydralazine 25 Mg Tab PO 75 mg TID MECCA Administration Insulin Glargine 50 units/ 0.5 mls @ 0 mls/hr 02/26/20 09:00 02/26/20 08:21 Miscellaneous Medication SC 0.5 mls QAM MECCA Administration Insulin Human Lispro 0 units 02/17/20 22:33 02/27/20 06:08 Humalog 300 Units/3 Ml Vial SC 2 unit .MODERATE SLIDING SC PRN Administration Moderate Correctional Scale Labetalol HCl 10 mg 02/19/20 11:23 02/24/20 04:18 Labetalol Hcl 100 Mg/20 Ml Vial SLOW IVP 10 mg Q4H PRN Administration SBP Greater Than 170 Lisinopril 40 mg 02/26/20 09:00 02/26/20 08:21 Lisinopril 20 Mg Tab PO 40 mg DAILY MECCA Administration Sodium Chloride 10 ml 02/18/20 09:00 02/26/20 19:55 Flush - Normal Saline 10 Ml Syringe IVF Not Given Q12HR MECCA Sodium Chloride 10 ml 02/18/20 09:00 02/24/20 04:20 Flush - Normal Saline 10 Ml Syringe IVF 10 ml PRN PRN Administration Saline Flush Zinc Sulfate 220 mg 02/20/20 09:00 02/26/20 08:21 Zinc Sulfate 220 Mg Cap PO 220 mg DAILY MECCA Administration - Exam General Appearance: NAD, awake alert Eye: PERRL, anicteric sclera ENT: normocephalic atraumatic, no oropharyngeal lesions, moist mucosa Heart: RRR, no murmur, no gallops, no rubs, normal peripheral pulses Respiratory: CTAB, no wheezes, no rales, no ronchi, normal chest expansion, no tachypnea, normal percussion Gastrointestinal: soft, non-tender, non-distended, normal bowel sounds, no palpable masses, no hepatomegaly, no splenomegaly, no bruit Extremities: no cyanosis, no clubbing, no edema Neurological: cranial nerve grossly intact, normal sensation to touch, no focal deficits, no new deficit Musculoskeletal: normal tone, no muscle wasting, generalized weakness Psychiatric: oriented to person, oriented to place, flat affect (Flat affect, poor historian, poor insight) Hosp A/P - Plan old records reviewed/req A/P: Initial admitted with possible sepsis believed to be secondary to bacterial pneumonia. Blood cultures remain negative. Although patient tested negative for COVID-19 PCR he does have a positive antibody test. Per ID her symptoms are likely secondary to Covid 19 infection. Status post remdesivir treatment and currently finishing dexamethasone. COVID-19 infection: Presumed COVID-19. Status post remdesivir. On day 9 of dexamethasone for review of EHR. We will continue dexamethasone tomorrow 02-28-20. Assessment this morning she is stable on room air. She does appear quite deconditioned and will probably need rehab. Diabetes mellitus: Titrating insulin due to hyperglycemia induced by steroids. Continue to monitor glucose levels closely. Hypertension: Continue with amlodipine, clonidine, hydralazine, GERA inhibitor. IV hydralazine as needed. Medication noncompliance: She was counseled. DISPOSITION: Very poor historian. Offers little details about hospital course. Denies any acute complaints. She does admit to weakness. Anticipate discharge to rehab.
[2020-02-27] MEDS: Amlodipine 10 MG TAB PO SCH (08:22)
[2020-02-27] MEDS: Aspirin 325 mg Enteric Coated Tablet PO SCH (08:23)
[2020-02-27] MEDS: cloNIDine 0.1 MG TAB PO SCH ×2 (08:23→20:27)
[2020-02-27] MEDS: Ascorbic Acid 500 mg Chewable Tablet PO SCH (08:23)
[2020-02-27] MEDS: Enoxaparin Sodium 40 MG/0.4 ML SYRINGE SC SCH ×2 (08:24→20:27)
[2020-02-27] MEDS: Famotidine 20 MG TAB PO SCH ×2 (08:24→20:27)
[2020-02-27] MEDS: Insulin Glargine 50 UNITS in Pre-Filled Syringe 1 EACH SC SCH (08:26)
[2020-02-27] MEDS: Zinc Sulfate 220 MG CAP PO SCH (08:33)
[2020-02-27] MEDS: hydrALAZINE 25 MG TAB PO SCH ×3 (08:33→20:27)
[2020-02-27] MEDS: Lisinopril 20 MG TAB PO SCH (08:33)
[2020-02-27] MEDS: Dexamethasone 4 MG TAB PO SCH (16:11)
[2020-02-27] MEDS: Cholecalciferol 1,000 UNITS (25 MCG) TAB PO SCH (20:27)
[2020-02-28 05:21] LABS: #Lymphocytes 0.8 thou/uL (1.20-3.40); #Monocytes 0.4 thou/uL (0.11-0.59); #Neutrophils 10.5 thou/uL (1.40-6.50); %Basophils 0.1 % (0.0-1.0); %Eosinophils 0.2 % (0.0-10.0); %Lymphocytes 6.5 % (21.0-51.0); %Monocytes 3.6 % (0.0-10.0); %Neutrophils 89.5 % (42.0-75.0); Hemoglobin 10.9 g/dL (12.0-16.0); Mean Corpuscular HGB CONC 32.4 g/dL (32.0-36.0); Mean Corpuscular Hemoglobin 26.8 pg (27.0-31.0); Mean Corpuscular Volume 82.6 fL (78.0-98.0); Mean Platelet Volume 9.1 fL (7.4-10.4); Platelet Count 291 thou/uL (130-400); RBC Distribution Width 13.9 % (11.5-14.5); Red Blood Cell (RBC) Count 4.06 mill/uL (4.20-5.40); White Blood Cell (WBC) Count 11.7 thou/uL (4.8-10.8)
[2020-02-28 05:49] LABS: ALT (SGPT) 50 U/L (8-55); AST (SGOT) 36 U/L (5-34); Albumin 2.3 g/dL (3.5-5.0); Alkaline Phosphatase 87 U/L (40-110); Anion Gap 10 mmol/L (10-20); BUN (Urea Nitrogen) 22 mg/dL (7.0-18.7); Bilirubin, Total 0.3 mg/dL (0.2-1.2); Calc. Creatinine Clearance 92 mL/min (70-130); Calcium 7.7 mg/dL (7.8-10.44); Carbon Dioxide 31 mmol/L (22-29); Chloride 100 mmol/L (98-107); Globulin 2.3 g/dL (2.4-3.5); Glucose 231 mg/dL (70-105); Potassium 3.5 mmol/L (3.5-5.1); Protein, Total 4.6 g/dL (6.0-8.3); Sodium 137 mmol/L (136-145)
[2020-02-28] MEDS: HumaLOG 300 UNITS/3 ML VIAL SC PRN ×2 (06:01→13:14)
[2020-02-28] MEDS: Enoxaparin Sodium 40 MG/0.4 ML SYRINGE SC SCH (10:02)
[2020-02-28] MEDS: Famotidine 20 MG TAB PO SCH (10:02)
[2020-02-28] MEDS: Zinc Sulfate 220 MG CAP PO SCH (10:03)
[2020-02-28] MEDS: Aspirin 325 mg Enteric Coated Tablet PO SCH (10:03)
[2020-02-28] MEDS: cloNIDine 0.1 MG TAB PO SCH (10:03)
[2020-02-28] MEDS: Ascorbic Acid 500 mg Chewable Tablet PO SCH (10:03)
[2020-02-28] MEDS: hydrALAZINE 25 MG TAB PO SCH ×2 (10:03→15:34)
[2020-02-28] MEDS: Insulin Glargine 50 UNITS in Pre-Filled Syringe 1 EACH SC SCH (10:04)
[2020-02-28] MEDS: Lisinopril 20 MG TAB PO SCH (10:04)
[2020-02-28] MEDS: Amlodipine 10 MG TAB PO SCH (10:04)
[2020-02-28 13:39] VITALS: TEMP 98.3
[2020-02-28 15:36] VITALS: BP 132/61
--- NOTE | 2020-02-28 18:34 | PDOC.DS.DS ---
Provider - Provider Date of Admission: 02/17/20 22:15 Date of Discharge: 02/28/20 Admitting Provider: Cleveland Gr MD Consultations: Infectious Disease (Dr. Fidencio Vela) Primary Care Physician: Benoit Mariscal MD Course - Hospital Course Hospital Course: Brief HPI: This is a 49 year old male with past medical history of diabetes, hypertension who presented to the ER with slurred speech and hyperglycemia. The patient had not been taking her insulin . Her blood sugar was > 300 in the ER, with an elevated betahydroxybutyrate and anion gap but also had acute renal failure with creatinine of 1.63. The patient was given insulin and IV fluids with improvement in her glucose. She was hypoxic and admitted ot hte floor. Hospital Course: Acute hypoxic respiratory failure likely from COVID pneumonia: the patient was initially admitted on 6L of oxygen. She had a choking episode and desaturated and was transferred to the [facility] briefly on BIPAP. COVID PCR ws negative x 2, but COVID antibody was positive. The patient received remdesivir from 02/18 to 02/22. She was eventually weaned off oxygen. She should get a repeat chest Xray in 6 weeks. Consider repeat CBC in a week. She will be discharged and stay with her mom. Acute renal failure: the patient's renal failure resolved with IV fluids. Type II diabetes: the patient was started on lantus 15 untis SC BID with adequate control. Please follow up with PCP in a week. Slurred speech: the patient had a CT scan of her brain in the ER that showed no acute disease. MRI was not done due to COVID status. Her slurred speech may have been from hyperglycemia. Consider MRI as an o utpatient. She will continue aspirin at home. Transaminitis: AST was mildly elevated on discharge. Consider repeat LFTS in a week. Hypertensive Urgency: the patient had a blood pressure of 180/100. She was started on hydralazine 75 mg po tid and discharged with this. Pertinent Studies: CT brain 02/16: no acute disease Chest X ray 02/16: no acute disease Chest X ray 02/17: left basilar atelectasis CT chest 02/17: dense consolidation in each lung bilaterally. Renal lesion likely a cyst. Chronic cholelithiasis - Labs Lab Results: 02/28/20 04:54 02/28/20 04:54 Abnormal Lab Results - Last 48 hrs 02/28/20 04:54: Carbon Dioxide 31 H, BUN 22 H, Calcium 7.7 L, AST 36 H, Serum Total Protein 4.6 L, Albumin 2.3 L, Globulin 2.3 L, Albumin/Globulin Ratio 1.0 L 02/28/20 04:54: WBC 11.7 H, RBC 4.06 L, Hgb 10.9 L, Hct 33.5 L, MCH 26.8 L, Neutrophils % 89.5 H, Lymphocytes % 6.5 L, Neutrophils # 10.5 H, Lymphocytes # 0.8 L Microbiology - Entire Visit 02/17/20 19:16 Venous blood - Right Hand Blood Culture - Final NO GROWTH IN 5 DAYS 02/17/20 19:11 Venous blood - Left Arm Blood Culture - Final NO GROWTH IN 5 DAYS 02/17/20 20:00 Urine Straight Catheter Urine Culture - Final NO GROWTH AT 36 HOURS - Physical Exam Vitals: Vital Signs (12 hours) Temp Pulse Resp BP BP Pulse Ox 02/28/20 15:34 97 132/61 02/28/20 13:21 98.3 F 83 20 134/65 94 L 02/28/20 10:10 97.9 F 83 20 147/68 H 95 Weight Admit Weight 152 lb 5.44 oz Weight 152 lb 5.431 oz Most Recent Monitor Data Heart Rate from ECG 93 NIBP 151/95 NIBP BP-Mean 113 Respiration from ECG 28 SpO2 100 Physical Exam: The patient was seen and examined on the day of discharge. General: patient is alert, awake, oriented times three. She is overweight CVS: RRR, no murmurs, rubs, gallops Lungs: CTAB Abdomen: +BS, soft, nontender, nondistended Extremities: no edema Plan - Discharge Medications Prescriptions: hydrALAZINE [Apresoline] 75 mg PO QID 30 Days #120 tab cloNIDine [Catapres] 0.1 mg PO BID 30 Days #60 tab Aspirin [Ecotrin Regular Strength] 325 mg PO DAILY 30 Days #30 tab Amlodipine [Norvasc] 10 mg PO DAILY 30 Days #30 tab Insulin NPH Hum/Reg Insulin HM [Novolin 70-30 Flexpen] 100 unit SQ BID #30 insuln.pen Cholecalciferol [Vitamin D3] 1,000 units PO HS 30 Days #30 tab Lisinopril [Zestril] 40 mg PO DAILY #30 tablet Home Medications: Medication Instructions Recorded Confirmed Type Insulin Aspart [Insulin Aspart 100 unit SQ DAILY 02/18/20 02/18/20 History Flexpen] Lisinopril [Zestril] 40 mg PO DAILY 02/18/20 02/18/20 History Amlodipine [Norvasc] 10 mg PO DAILY 30 Days #30 tab 02/27/20 Rx Aspirin [Ecotrin Regular Strength] 325 mg PO DAILY 30 Days #30 tab 02/27/20 Rx Cholecalciferol [Vitamin D3] 1,000 units PO HS 30 Days #30 tab 02/27/20 Rx Insulin NPH Hum/Reg Insulin HM 100 unit SQ BID #30 insuln.pen 02/27/20 Rx [Novolin 70-30 Flexpen] Lisinopril [Zestril] 40 mg PO DAILY #30 tablet 02/27/20 Rx cloNIDine [Catapres] 0.1 mg PO BID 30 Days #60 tab 02/27/20 Rx hydrALAZINE HCl [Hydralazine HCl] 75 mg PO TID #0 02/27/20 02/18/20 Rx hydrALAZINE [Apresoline] 75 mg PO QID 30 Days #120 tab 02/27/20 Rx Allergies: Penicillins Allergy (Verified 02/18/20 01:12) - Discharge Instructions Activity:: Activity as Tolerated Nourishment:: Diabetic Diet - Follow up Plan Referrals: Benoit Mariscal MD [Primary Care Provider] - 03/06/20 5:00 pm (Take all medications and hospital paperwork to the appointment. ) Disposition: HOME Quality - Care Measures CORE MEASURES:: N/A
== END 2020-02-28 16:01 | disposition home or self-care (01) | DRG 871 ==
LOC: ERS 18:03 → 2SE 22:15 → 2SW 02-18 16:41 → IMCU/EMU 02-19 22:31 → 2SW 02-22 20:55
PROVIDERS: ADMIT Emergency Medicine; ATTEND Internal Medicine
PROC: 8E0ZXY6 Isolation (ICD-10-PCS; 2020-02-18)
PROC: XW033E5 Introduction of Remdesivir Anti-infective into Peripheral Vein, Percutaneous Approach, New Technology Group 5 (ICD-10-PCS; principal; 2020-02-19)
DX: A41.89 Other specified sepsis (principal); U07.1 COVID-19; G93.41 Metabolic encephalopathy; J96.01 Acute respiratory failure with hypoxia; N17.9 Acute kidney failure, unspecified; I10 Essential (primary) hypertension; E11.65 Type 2 diabetes mellitus with hyperglycemia; R74.01 Elevation of levels of liver transaminase levels; I16.0 Hypertensive urgency; Z90.710 Acquired absence of both cervix and uterus; Z86.73 Personal history of transient ischemic attack (TIA), and cerebral infarction without residual deficits; Z28.21 Immunization not carried out because of patient refusal; Z78.1 Physical restraint status; Z88.0 Allergy status to penicillin; Z91.14 Patient's other noncompliance with medication regimen; I25.2 Old myocardial infarction; Z79.4 Long term (current) use of insulin; Z79.899 Other long term (current) drug therapy
CPT/HCPCS: 36415; 36416; 51701; 70450; 71045; 71250; 80048; 80053; 80061; 80076; 80202; 80306; 80307; 81003; 81015; 82010; 82330; 82550; 82553; 82728; 82803; 83605; 83615; 83690; 83735; 83880; 84484; 85025; 85379; 86140; 86769; 87040; 87086; 87635; 93005; 93010; 96365; 96375; J0360; J0456; J0692; J1100; J1650; J1815; J2405; J3370; J3480; J3490; J7050; J8540; U0003

== ENCOUNTER 2020-06-30 11:22 | Outpatient (CLI) | payer OTHER | END 2020-06-30 11:23 | disposition home or self-care (01) | LOC: BICRAD 11:22 | PROVIDERS: ATTEND Internal Medicine | DX: Z02.71 Encounter for disability determination (principal); M47.816 Spondylosis without myelopathy or radiculopathy, lumbar region; M47.817 Spondylosis without myelopathy or radiculopathy, lumbosacral region; Q76.49 Other congenital malformations of spine, not associated with scoliosis | CPT/HCPCS: 72100 ==

== ENCOUNTER 2020-08-05 07:27 | Inpatient (IN) | payer OTHER, SELFPAY ==
[2020-08-05 08:25] LABS: Bilirubin Negative (Negative); Blood, Urine Negative (Negative); Clarity Turbid (Clear); Glucose, Urine (Dipstick) Normal (Negative); Ketone, Urine Trace mg/dL (Negative); Leukocyte Negative Leu/uL (Negative); Nitrite Negative (Negative); Protein, Urine (Dipstick) 200 mg/dL (Neg-Trace); Specific Gravity, Urine 1.025 (1.002-1.036); Squamous Epithelial 0-3 HPF (0-3); Urobilinogen Normal mg/dL (Less than 2); pH, Urine 5.5 (5.0-9.0)
[2020-08-05 08:39] LABS: RBC/HPF 0-3 HPF (0-3)
[2020-08-05 08:40] LABS: Bacteria/HPF Rare-Few HPF (None Seen); Mucous/LPF None Seen LPF (<2+)
[2020-08-05 08:49] LABS: #Lymphocytes 0.9 thou/uL (1.20-3.40); #Monocytes 0.8 thou/uL (0.11-0.59); #Neutrophils 13.8 thou/uL (1.40-6.50); %Basophils 0.1 % (0.0-1.0); %Eosinophils 0.1 % (0.0-10.0); %Lymphocytes 5.8 % (21.0-51.0); %Neutrophils 89.1 % (42.0-75.0); Hemoglobin 13.7 g/dL (12.0-16.0); Mean Corpuscular HGB CONC 32.3 g/dL (32.0-36.0); Mean Corpuscular Hemoglobin 25.9 pg (27.0-31.0); Mean Corpuscular Volume 80.3 fL (78.0-98.0); Mean Platelet Volume 8.7 fL (7.4-10.4); Platelet Count 349 thou/uL (130-400); RBC Distribution Width 12.9 % (11.5-14.5); Red Blood Cell (RBC) Count 5.28 mill/uL (4.20-5.40); White Blood Cell (WBC) Count 15.5 thou/uL (4.8-10.8)
[2020-08-05] MEDS ORDERED: niCARdipine 20MG In NaCl 0 MG/0 ML BAG ONE (08:51)
[2020-08-05] MEDS ORDERED: Lorazepam 2 MG/ML VIAL ONE (08:51)
[2020-08-05] MEDS ORDERED: Aspirin Chewable 81 MG TAB ONE (08:51)
[2020-08-05] MEDS ORDERED: niCARdipine 20MG In NaCl 20 MG/200 ML BAG ONE (08:52)
[2020-08-05 09:05] LABS: Prothrombin Time 13.5 sec (12.0-14.7)
[2020-08-05] MEDS ORDERED: Iopamidol-370 76% 500 ML 1 ML ONE (09:05)
[2020-08-05 09:08] LABS: ALT (SGPT) 9 U/L (8-55); AST (SGOT) 21 U/L (5-34); Albumin 4.1 g/dL (3.5-5.0); Alkaline Phosphatase 110 U/L (40-110); Anion Gap 17 mmol/L (10-20); BUN (Urea Nitrogen) 28 mg/dL (9.8-20.1); Bilirubin, Total 0.6 mg/dL (0.2-1.2); Calc. Creatinine Clearance 0 mL/min (70-130); Calcium 10.6 mg/dL (7.8-10.44); Carbon Dioxide 30 mmol/L (22-29); Chloride 100 mmol/L (98-107); Globulin 3.6 g/dL (2.4-3.5); Protein, Total 7.7 g/dL (6.0-8.3); Sodium 144 mmol/L (136-145)
[2020-08-05 09:12] LABS: Glucose 28 mg/dL (70-105); Potassium 2.7 mmol/L (3.5-5.1)
[2020-08-05] MEDS ORDERED: Dextrose 50% Abboject 50 ML SYRINGE ONE ×2 (09:12→16:06)
[2020-08-05 09:31] LABS: CKMB 5.4 ng/mL (0-6.6)
[2020-08-05] MEDS ORDERED: Potassium Chloride 20 MEQ TAB ONE (10:19)
[2020-08-05] MEDS ORDERED: Aspirin 300 MG Suppository ONE (10:24)
[2020-08-05] MEDS ORDERED: NS 0.9% w/ 40 MEQ KCL 1,000 ML IV SCH (11:15)
[2020-08-05] MEDS ORDERED: Labetalol HCl 100 MG/20 ML VIAL SLOW IVP PRN (11:42)
[2020-08-05 11:54] LABS: Acetaminophen Less than 6.0 mcg/mL (10.0-30.0); Alcohol Less than 10 mg/dL (Less than 10); Salicylate Less than 8.0 mg/dL (15.0-30.0)
[2020-08-05 12:05] LABS: Amphetamine Not Detected (NotDetected); Barbiturates Screen Not Detected (NotDetected); Benzodiazepine Screen Not Detected (NotDetected); Cocaine Metabolite Screen Not Detected (NotDetected); Medtox Control Line Valid? VALID (VALID); Medtox Reader # READER 4; Methadone Not Detected (NotDetected); Methamphetamine Not Detected (NotDetected); Opiate Screen Not Detected (NotDetected); Oxycodone Screen Not Detected (NotDetected); Phencyclidine (PCP) Not Detected (NotDetected); THC/Cannabinoid Screen Not Detected (NotDetected); Tricyclic Screen Not Detected (NotDetected)
[2020-08-05] MEDS ORDERED: Magnesium 2 GM/50 ML 2 GM in Premix Bag 1 BAG IVPB SCH ×2 (13:00→19:30)
[2020-08-05] MEDS ORDERED: Sodium Chloride 0.9% 500 ML IV SCH (13:00)
[2020-08-05 14:41] LABS: Lactic Acid 2.7 mmol/L (0.5-2.2)
[2020-08-05 14:46] LABS: Critical Call Chem Troponin I RESULT DECREASING; Troponin I 0.345 ng/mL (< 0.028)
[2020-08-05] MEDS ORDERED: Magnesium 2 GM/50 ML BAG (IN WATER) ONE (15:01)
[2020-08-05] MEDS: Dextrose 50% Abboject 50 ML SYRINGE SLOW IVP PRN ×3 (16:07→23:18)
[2020-08-05 18:20] LABS: Anion Gap 14 mmol/L (10-20); BUN (Urea Nitrogen) 11 mg/dL (9.8-20.1); Calc. Creatinine Clearance 0 mL/min (70-130); Calcium 9.3 mg/dL (7.8-10.44); Carbon Dioxide 26 mmol/L (22-29); Chloride 106 mmol/L (98-107); Glucose 87 mg/dL (70-105); Sodium 143 mmol/L (136-145)
[2020-08-05 18:49] LABS: Potassium 2.5 mmol/L (3.5-5.1)
[2020-08-05] MEDS ORDERED: Electrolyte Replacement Protocol 1 EACH FS ONE (18:56)
[2020-08-05] MEDS ORDERED: Electrolyte Replacement Protocol FS PRN (19:30)
[2020-08-05] MEDS: Atorvastatin Calcium 40 MG TAB PO SCH (19:37)
[2020-08-05] MEDS: Famotidine/PF 20 mg/2ml Vial SLOW IVP SCH (19:38)
[2020-08-05] MEDS ORDERED: Potassium Chloride 40 MEQ in Sodium Chloride 0.9% 250 ML 250 ML IVPB SCH (21:00)
[2020-08-05] MEDS: Dextrose 5% in Water 1,000 ML IV PRN (23:18)
[2020-08-06] MEDS ORDERED: Potassium Chloride 40 MEQ in Sodium Chloride 0.9% 250 ML 250 ML IVPB SCH (01:00)
[2020-08-06] MEDS: Dextrose 50% Abboject 50 ML SYRINGE SLOW IVP PRN (02:38)
[2020-08-06 06:58] LABS: Lactic Acid 2.5 mmol/L (0.5-2.2)
[2020-08-06 07:02] LABS: Cardiac Risk 7.2 (Less than 4.5)
[2020-08-06 07:30] LABS: Anion Gap 14 mmol/L (10-20); BUN (Urea Nitrogen) 6 mg/dL (9.8-20.1); Calc. Creatinine Clearance 91 mL/min (70-130); Calcium 8.4 mg/dL (7.8-10.44); Carbon Dioxide 24 mmol/L (22-29); Chloride 104 mmol/L (98-107); Glucose 127 mg/dL (70-105); Magnesium 1.9 mg/dL (1.6-2.6); Sodium 139 mmol/L (136-145)
[2020-08-06 07:33] LABS: Potassium 2.9 mmol/L (3.5-5.1)
[2020-08-06] MEDS ORDERED: Magnesium 2 GM/50 ML 2 GM in Premix Bag 1 BAG IVPB SCH (07:45)
[2020-08-06] MEDS ORDERED: Aspirin 325 MG TAB ONE (08:54)
[2020-08-06] MEDS ORDERED: Aspirin 300 MG Suppository PR SCH (09:00)
[2020-08-06] MEDS ORDERED: Enoxaparin Sodium 40 MG/0.4 ML SYRINGE SC SCH (09:00)
[2020-08-06] MEDS ORDERED: Aspirin Chewable 81 MG TAB PO SCH (09:00)
[2020-08-06] MEDS: Potassium Chloride 20 MEQ in Premix Bag 1 BAG IVPB SCH ×5 (09:21→22:13)
[2020-08-06] MEDS: Famotidine/PF 20 mg/2ml Vial SLOW IVP SCH ×2 (09:22→19:40)
[2020-08-06] MEDS: Dextrose 5% in Water 1,000 ML IV PRN (09:29)
[2020-08-06] MEDS ORDERED: Electrolyte Replacement Protocol 1 EACH FS SCH (09:45)
[2020-08-06] MEDS ORDERED: Aspirin 81 mg Enteric Coated Tablet PO SCH (09:45)
[2020-08-06] MEDS ORDERED: Vancomycin HCl 1.25 GM in Sodium Chloride 0.9% 250 ML 250 ML IVPB SCH (12:15)
[2020-08-06 12:34] LABS: SARS-CoV-2 PCR by NAA Not Detected (NotDetected)
[2020-08-06 16:58] LABS: INR-International Normal Ratio 1.1; PTT 31.4 sec (22.9-36.1); Prothrombin Time 14.4 sec (12.0-14.7)
[2020-08-06 16:59] LABS: D-Dimer Test 2.45 *mcg/mL (0.27-0.43)
[2020-08-06 17:00] LABS: Protein C Activity 89 % (78-152)
[2020-08-06] MEDS: Carvedilol 3.125 MG TAB PO SCH (19:40)
[2020-08-06] MEDS: Atorvastatin Calcium 40 MG TAB PO SCH (19:40)
[2020-08-07] MEDS: Labetalol HCl 100 MG/20 ML VIAL SLOW IVP PRN ×2 (00:07→20:41)
[2020-08-07] MEDS: Vancomycin HCl 750 MG in Sodium Chloride 0.9% 250 ML 250 ML IVPB SCH ×2 (00:37→14:51)
[2020-08-07 07:58] LABS: Anion Gap 13 mmol/L (10-20); BUN (Urea Nitrogen) 7 mg/dL (9.8-20.1); Calc. Creatinine Clearance 79 mL/min (70-130); Calcium 8.7 mg/dL (7.8-10.44); Carbon Dioxide 26 mmol/L (22-29); Chloride 105 mmol/L (98-107); Glucose 237 mg/dL (70-105); Potassium 3.5 mmol/L (3.5-5.1); Sodium 140 mmol/L (136-145)
[2020-08-07] MEDS ORDERED: Clopidogrel Bisulfate 75 MG TAB PO SCH (09:15)
[2020-08-07] MEDS: Aspirin 81 mg Enteric Coated Tablet PO SCH (09:43)
[2020-08-07] MEDS: Carvedilol 3.125 MG TAB PO SCH ×2 (09:43→20:42)
[2020-08-07] MEDS: Losartan 25 MG TAB PO SCH (09:43)
[2020-08-07] MEDS: Famotidine/PF 20 mg/2ml Vial SLOW IVP SCH ×2 (09:44→20:41)
[2020-08-07] MEDS: HumaLOG 300 UNITS/3 ML VIAL SC PRN ×2 (11:44→17:57)
[2020-08-07 12:27] LABS: Cardiolipin IgA Ab 3.9 APL-U/mL (<14 Negative); Cardiolipin IgG Ab Less than 0.5 GPL-U/mL (<10 Negative); Cardiolipin IgM Ab 1.5 MPL-U/mL (<10 Negative); EliA APS New Method **** NEW METHOD ****
[2020-08-07] MEDS ORDERED: Potassium Chloride 20 MEQ in Premix Bag 1 BAG IVPB SCH (14:00)
[2020-08-07] MEDS ORDERED: Potassium Chloride 20 MEQ TAB PO SCH (14:30)
[2020-08-07] MEDS: Atorvastatin Calcium 40 MG TAB PO SCH (20:42)
[2020-08-07] MEDS: Lantus 1000 UNITS/10 ML VIAL SC SCH (21:03)
[2020-08-08 01:32] LABS: Vancomycin, Trough 11.9 ug/mL
[2020-08-08] MEDS: Vancomycin HCl 750 MG in Sodium Chloride 0.9% 250 ML 250 ML IVPB SCH (01:39)
[2020-08-08] MEDS: Vancomycin 1 GM in Premix Bag 1 BAG IVPB SCH ×2 (01:41→17:00)
[2020-08-08] MEDS: HumaLOG 300 UNITS/3 ML VIAL SC PRN ×2 (05:42→20:50)
[2020-08-08] MEDS: Aspirin 81 mg Enteric Coated Tablet PO SCH (08:48)
[2020-08-08] MEDS: Famotidine/PF 20 mg/2ml Vial SLOW IVP SCH ×2 (08:48→20:49)
[2020-08-08] MEDS: Carvedilol 3.125 MG TAB PO SCH ×2 (08:48→20:49)
[2020-08-08] MEDS: Clopidogrel Bisulfate 75 MG TAB PO SCH (08:48)
[2020-08-08] MEDS: Losartan 25 MG TAB PO SCH (08:48)
[2020-08-08] MEDS ORDERED: hydrALAZINE 20 MG/ML VIAL SLOW IVP SCH (11:45)
[2020-08-08 13:10] VITALS: BMI 27.0
[2020-08-08] MEDS ORDERED: cloNIDine 0.1 MG TAB PO SCH (14:15)
[2020-08-08] MEDS ORDERED: Amlodipine 10 MG TAB PO SCH (14:15)
[2020-08-08] MEDS ORDERED: Lisinopril 20 MG TAB PO SCH (14:15)
[2020-08-08] MEDS: hydrALAZINE 25 MG TAB PO SCH ×2 (17:11→20:49)
[2020-08-08] MEDS: Atorvastatin Calcium 40 MG TAB PO SCH (20:49)
[2020-08-08] MEDS: Lantus 1000 UNITS/10 ML VIAL SC SCH (20:50)
[2020-08-09] MEDS: Vancomycin 1 GM in Premix Bag 1 BAG IVPB SCH ×2 (02:11→14:38)
[2020-08-09] MEDS: Amlodipine 10 MG TAB PO SCH (09:21)
[2020-08-09] MEDS: cloNIDine 0.1 MG TAB PO SCH (09:28)
[2020-08-09] MEDS: Clopidogrel Bisulfate 75 MG TAB PO SCH (09:28)
[2020-08-09] MEDS: Aspirin 81 mg Enteric Coated Tablet PO SCH (09:28)
[2020-08-09] MEDS: Carvedilol 3.125 MG TAB PO SCH ×2 (09:28→20:05)
[2020-08-09] MEDS: hydrALAZINE 25 MG TAB PO SCH ×3 (09:29→20:05)
[2020-08-09] MEDS: Famotidine/PF 20 mg/2ml Vial SLOW IVP SCH ×2 (09:29→20:06)
[2020-08-09] MEDS: Lisinopril 20 MG TAB PO SCH (09:29)
[2020-08-09] MEDS: Losartan 25 MG TAB PO SCH (09:29)
[2020-08-09] MEDS: HumaLOG 300 UNITS/3 ML VIAL SC PRN (12:38)
[2020-08-09 13:23] LABS: Vancomycin, Trough 2.9 ug/mL
[2020-08-09] MEDS: Atorvastatin Calcium 40 MG TAB PO SCH (20:05)
[2020-08-09] MEDS: Lantus 1000 UNITS/10 ML VIAL SC SCH (20:16)
[2020-08-10] MEDS: Vancomycin 1 GM in Premix Bag 1 BAG IVPB SCH ×2 (01:53→14:03)
[2020-08-10] MEDS: Clopidogrel Bisulfate 75 MG TAB PO SCH (08:38)
[2020-08-10] MEDS: Lisinopril 20 MG TAB PO SCH (08:38)
[2020-08-10] MEDS: hydrALAZINE 25 MG TAB PO SCH ×3 (08:39→23:45)
[2020-08-10] MEDS: Carvedilol 3.125 MG TAB PO SCH ×2 (08:39→21:17)
[2020-08-10] MEDS: Losartan 25 MG TAB PO SCH (08:39)
[2020-08-10] MEDS: cloNIDine 0.1 MG TAB PO SCH (08:40)
[2020-08-10] MEDS: Amlodipine 10 MG TAB PO SCH (08:40)
[2020-08-10] MEDS: Famotidine/PF 20 mg/2ml Vial SLOW IVP SCH ×2 (08:41→21:17)
[2020-08-10] MEDS: Aspirin 81 mg Enteric Coated Tablet PO SCH (08:41)
[2020-08-10] MEDS: Atorvastatin Calcium 40 MG TAB PO SCH (21:17)
[2020-08-10] MEDS: Lantus 1000 UNITS/10 ML VIAL SC SCH (21:18)
[2020-08-11 01:29] LABS: Vancomycin, Trough 17.6 ug/mL
[2020-08-11] MEDS: Vancomycin HCl 750 MG in Sodium Chloride 0.9% 250 ML 250 ML IVPB SCH ×2 (04:31→14:58)
[2020-08-11] MEDS: Clopidogrel Bisulfate 75 MG TAB PO SCH (09:58)
[2020-08-11] MEDS: hydrALAZINE 25 MG TAB PO SCH ×3 (09:58→21:55)
[2020-08-11] MEDS: Famotidine/PF 20 mg/2ml Vial SLOW IVP SCH ×2 (09:58→21:37)
[2020-08-11] MEDS: Aspirin 81 mg Enteric Coated Tablet PO SCH (09:58)
[2020-08-11] MEDS: Carvedilol 3.125 MG TAB PO SCH ×2 (09:58→21:36)
[2020-08-11 12:12] LABS: Factor VIII Test 273.8 % ACTIVE (56-157)
[2020-08-11] MEDS: Lisinopril 20 MG TAB PO SCH (12:15)
[2020-08-11] MEDS: cloNIDine 0.1 MG TAB PO SCH (12:15)
[2020-08-11] MEDS: Amlodipine 10 MG TAB PO SCH (12:15)
[2020-08-11] MEDS: Losartan 25 MG TAB PO SCH (12:16)
[2020-08-11 16:55] LABS: HEX PHOS LA Tube 1 45.3 SEC; HEX PHOS LA Tube 2 39.1 SEC; Hexagonal Phospholipid Neut 6.2 SEC (0-8.0)
[2020-08-11] MEDS: Atorvastatin Calcium 40 MG TAB PO SCH (21:36)
[2020-08-11] MEDS: Lantus 1000 UNITS/10 ML VIAL SC SCH (21:37)
[2020-08-12 00:42] VITALS: TEMP 98.2
[2020-08-12] MEDS: Vancomycin HCl 750 MG in Sodium Chloride 0.9% 250 ML 250 ML IVPB SCH (04:45)
[2020-08-12 07:48] VITALS: BP 171/91
[2020-08-12] MEDS: Famotidine/PF 20 mg/2ml Vial SLOW IVP SCH (10:00)
[2020-08-12] MEDS: Clopidogrel Bisulfate 75 MG TAB PO SCH (10:00)
[2020-08-12] MEDS: Aspirin 81 mg Enteric Coated Tablet PO SCH (10:00)
[2020-08-12] MEDS: Amlodipine 10 MG TAB PO SCH (10:00)
[2020-08-12] MEDS: hydrALAZINE 25 MG TAB PO SCH (10:00)
[2020-08-12] MEDS: Carvedilol 3.125 MG TAB PO SCH (10:00)
[2020-08-12] MEDS: cloNIDine 0.1 MG TAB PO SCH (10:00)
[2020-08-12] MEDS: Losartan 25 MG TAB PO SCH (10:00)
[2020-08-13 20:37] LABS: Activated Protein C Resistance 2.8 ratio (.)
== END 2020-08-12 11:00 | disposition home or self-care (01) | DRG 64 ==
LOC: ERS 07:27 → ERHOLD 10:11 → IMCU/EMU 18:24 → SJJU 08-08 07:19
PROVIDERS: ADMIT Internal Medicine; ATTEND Internal Medicine
DX: I63.511 Cerebral infarction due to unspecified occlusion or stenosis of right middle cerebral artery (principal); I21.A1 Myocardial infarction type 2; A41.02 Sepsis due to Methicillin resistant Staphylococcus aureus; I67.4 Hypertensive encephalopathy; I16.1 Hypertensive emergency; I69.954 Hemiplegia and hemiparesis following unspecified cerebrovascular disease affecting left non-dominant side; G93.49 Other encephalopathy; E11.649 Type 2 diabetes mellitus with hypoglycemia without coma; Z20.822 Contact with and (suspected) exposure to COVID-19; F07.0 Personality change due to known physiological condition; E87.6 Hypokalemia; I10 Essential (primary) hypertension; E78.5 Hyperlipidemia, unspecified; R29.703 NIHSS score 3; G93.89 Other specified disorders of brain; I25.10 Atherosclerotic heart disease of native coronary artery without angina pectoris; E11.65 Type 2 diabetes mellitus with hyperglycemia; Z90.49 Acquired absence of other specified parts of digestive tract; Z90.710 Acquired absence of both cervix and uterus; Z91.14 Patient's other noncompliance with medication regimen; I25.2 Old myocardial infarction; Z79.82 Long term (current) use of aspirin; Z79.4 Long term (current) use of insulin; Z79.899 Other long term (current) drug therapy
CPT/HCPCS: 36415; 36416; 51701; 70450; 70496; 70498; 71045; 80048; 80053; 80061; 80202; 80306; 80307; 81003; 81015; 82553; 83090; 83605; 83735; 83880; 84443; 84484; 85025; 85240; 85300; 85303; 85305; 85307; 85379; 85598; 85610; 85730; 86147; 87040; 87077; 87086; 87149; 87186; 93005; 93306; 94760; 95712; 95819; 95957; 96365; 96366; 96375; J0360; J1815; J2060; J3370; J3475; J3480; J7050; Q9967; S0028; U0003; U0005

== ENCOUNTER 2023-01-06 07:51 | Emergency (ER) | payer MEDICAID, MEDICARE ==
[2023-01-06 08:59] LABS: #Monocytes 0.5 thou/uL (0.11-0.59); #Neutrophils 6.9 thou/uL (1.40-6.50); %Basophils 0.1 % (0.0-1.0); %Eosinophils 0.2 % (0.0-10.0); %Lymphocytes 15.2 % (21.0-51.0); %Monocytes 5.3 % (0.0-10.0); %Neutrophils 78.7 % (42.0-75.0); Hematocrit 37.9 % (36.0-47.0); Hemoglobin 12.3 g/dL (12.0-16.0); Mean Corpuscular HGB CONC 32.5 g/dL (32.0-36.0); Mean Corpuscular Hemoglobin 26.8 pg (27.0-31.0); Mean Corpuscular Volume 82.6 fl (78.0-98.0); Mean Platelet Volume 10.6 fL (7.4-10.4); Platelet Count 274 10x3/uL (130-400); RBC Distribution Width 13.2 % (11.5-14.5); Red Blood Cell (RBC) Count 4.59 mill/uL (4.20-5.40); White Blood Cell (WBC) Count 8.8 10x3/uL (4.8-10.8)
[2023-01-06 09:23] LABS: ALT (SGPT) 37 U/L (8-55); AST (SGOT) 35 U/L (5-34); Albumin 4.7 g/dL (3.5-5.0); Alkaline Phosphatase 90 U/L (40-110); Anion Gap 17 mmol/L (10-20); BUN (Urea Nitrogen) 31 mg/dL (9.8-20.1); Bilirubin, Total 0.2 mg/dL (0.2-1.2); Calc. Creatinine Clearance 0 mL/min (70-130); Calcium 10.3 mg/dL (7.8-10.44); Carbon Dioxide 26 mmol/L (22-29); Chloride 104 mmol/L (98-107); Estimated GFR 73; Globulin 3.1 g/dL (2.4-3.5); Glucose 139 mg/dL (70-105); Potassium 3.9 mmol/L (3.5-5.1); Protein, Total 7.8 g/dL (6.0-8.3); Sodium 143 mmol/L (136-145)
== END 2023-01-06 11:25 | disposition home or self-care (01) ==
LOC: ERS 07:51
DX: E11.649 Type 2 diabetes mellitus with hypoglycemia without coma (principal); I10 Essential (primary) hypertension; Z79.899 Other long term (current) drug therapy; Z79.82 Long term (current) use of aspirin
CPT/HCPCS: 36416; 80053; 85025; 99284